=== PATIENT | male | born 1955 | race Caucasian/White ===

== ENCOUNTER → 2018-07-15 13:33 | Outpatient (CLI) | payer BC, SELFPAY ==
--- NOTE | 2018-07-15 13:37 | XR_ITS ---
XR finger RT min 2V HISTORY: XR finger RT min 2V COMPARISON: Right hand 06/22/2018 HISTORY: Follow-up fracture TECHNIQUE: AP lateral and oblique views FINDINGS: There is a healing fracture at the base of the proximal phalanges of the little finger there is healthy callus formation at fracture site since the previous study. The middle distal phalanx appear intact. There is mild diffuse soft tissue swelling noted. IMPRESSION: Healing proximal phalanx of the right little finger with healing progressing normally ITS.REASON: small digit fx/ xrays OUT OF SPLINT! ORDERING PHYSICIAN: Bruno Mathur MD PATIENT AGE: 63 years COMPARISON: None FINDINGS: No fracture or dislocation. No lytic or blastic change. There is normal mineralization.. The joint spaces are well-preserved. No significant degenerative/arthritic changes. No erosive changes evident.. IMPRESSION: Negative, no acute finding
== END ==
PROVIDERS: PCP Family Medicine; Visit Provider Orthopaedic Surgery
DX: S62.619A Displaced fracture of proximal phalanx of unspecified finger, initial encounter for closed fracture (principal)
CPT/HCPCS: 73140

== ENCOUNTER 2018-08-01 15:30 | Outpatient (RCR) | payer BC, SELFPAY ==
--- NOTE | 2018-07-22 16:24 | HMH.OTOPEV ---
OT Inpatient Evaluation Rehab OT Outpatient Eval Start: 07/22/18 16:09 Freq: Status: Active Protocol: Document 07/22/18 16:09 RMBISHOP (Rec: 07/22/18 16:23 [id number] Electronically Signed By Bulmaro Swenson OT 07/22/18 16:09 Outpatient Therapy Subjective History Subjective History Pt is a 63 year old male who reports to therapy for initial evaluation to right small finger. 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 Pt's accident took place on June 22. Pt continues to demonstrate with decreased AROM and strength at right small finger. 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 Pt will continue to be seen to address these deficits. Chief Complaint Pain Spasms Stiff Swelling Catches/Locks Weakness Decreased Car Dealer Strength Decreased Coordination Symptom Type Ache Throb Sharp Stabbing Shooting Symptoms Relieved By Nothing Symptoms Aggravated By Physical Activity Twisting Lifting Prior Functional Limitations None Current Functional Limitations Reaching Lifting Housework Dressing Driving Sleeping Recreation Activity Symptom Description Intermittent Activity Dependent Level of pain today (0-10) 1 Pain scale - at its best (0-10) 1 Pain scale - at its worst (0-10) 2 Wrist/Hand Eval Finger Range of Motion Right Little Finger Finger ROM Limitations Pain Finger Metacarpophalangeal Flexion 80 degrees Active Range of Motion (degrees) Finger Metacarpophalangeal Extension 0 degrees Active Range
== END 2018-08-01 15:35 | disposition home or self-care (01) ==
LOC: OT 15:30
PROVIDERS: PCP Family Medicine; Visit Provider Orthopaedic Surgery
DX: S62.616A Displaced fracture of proximal phalanx of right little finger, initial encounter for closed fracture (principal)
CPT/HCPCS: 97140; 97165

== ENCOUNTER → 2020-01-25 09:35 | Outpatient (CLI) | payer BC, SELFPAY | PROVIDERS: PCP Nurse Practitioner Family; Visit Provider Nurse Practitioner Family | DX: I49.9 Cardiac arrhythmia, unspecified (principal) | CPT/HCPCS: 93225; 93226 ==

== ENCOUNTER → 2020-02-05 13:54 | Outpatient (CLI) | payer BC, SELFPAY ==
--- NOTE | 2020-02-05 13:55 | CA_ITS ---
APPROVED REPORT EXAM: Comprehensive 2D, Doppler, and color-flow Echocardiogram Latexer: Olivia Long RVT Ht: 6 ft 0 in Wt: 250lbs BSA: 2.34 BP: 148/77 mmHg Indications: Syncope, CAD, Hyperlipidemia, Hypertension,HHD 2D Dimensions LVOT 2.40 cm (M/F) 1.5-2.5 M-Mode Dimensions RVDd 3.48 cm (0.9-2.6) LVDd 4.74 cm (3.5-5.7) LVDs 3.42 cm (3.5-5.7) IVSd 1.54 cm (0.6-1.1) PWd 1.03 cm (0.6-1.1) EF (Teich) 53.90% FS 27.80% EDV (Teich) 104.40 mL ESV (Teich) 48.10 mL LV Diastology E/A Ratio 0.81 Mitral Valve MV A Velocity 61.00 (40-130 cm/s) Left Ventricle Left atrium is normal size, left ventricle is normal size, mild concentric left ventricular hypertrophy, visually estimated ejection fraction 55% with no regional wall motion abnormality. Grade 1 diastolic dysfunction seen without tissue Doppler evidence of raise left atrial pressure. Right Ventricle Right atrium and right ventricular normal size and contractility. Aortic Valve Aortic valve is minimally thickened and fibrosed, there is no aortic stenosis or aortic insufficiency. Mitral Valve Mitral valve is grossly normal, there is mild mitral regurgitation. Tricuspid Valve Tricuspid valve grossly normal, there is mild tricuspid regurgitation, tricuspid regurgitation jet velocity is inadequate for calculation of the right ventricular systolic pressure. Pulmonic Valve Pulmonic valve is poorly visualized. Great Vessels Aortic root is normal size. Pericardium No significant pericardial effusion noted. Conclusion 1. Normal left ventricular size, mild concentric left ventricular hypertrophy, visually estimated ejection fraction 55% with no regional wall motion abnormality, grade 1 diastolic dysfunction seen without tissue Doppler evidence of raise left atrial pressure. 2. Mild mitral and tricuspid regurgitation. 3. No significant pericardial effusion noted. Electronically signed by : Bill Liu, 02/06/2020 07:37:14
== END ==
PROVIDERS: PCP Family Medicine; Visit Provider Physician Assistant
DX: I11.9 Hypertensive heart disease without heart failure (principal); I25.10 Atherosclerotic heart disease of native coronary artery without angina pectoris; E78.5 Hyperlipidemia, unspecified; R42 Dizziness and giddiness; R55 Syncope and collapse; Z95.5 Presence of coronary angioplasty implant and graft
CPT/HCPCS: 93306

== ENCOUNTER → 2020-03-13 13:31 | Outpatient (CLI) | payer BC, SELFPAY ==
--- NOTE | 2020-03-13 13:35 | CA_ITS ---
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: Olivia Long RVT Laterality: Bilateral Study Quality: Good Indications: Dizziness and Vertigo Risk Factors Hypertension: Hyperlipidemia Doppler Spectral Velocity Analysis ECA (R) 129.90/14.80 cm/s ECA (L) 132.60/15.90 cm/s dICA (R) 99.70/34.10 cm/s dICA (L) 77.80/21.20 cm/s Kristina (R) 114.50/41.90 cm/s Kristina (L) 80.00/21.60 cm/s pICA (R) 90.50/32.20 cm/s pICA (L) 64.00/19.20 cm/s dCCA (R) 101.80/18.00 cm/s dCCA (L) 125.20/23.10 cm/s pCCA (R) 120.30/17.60 cm/s pCCA (L) 123.20/16.80 cm/s Vert (R) 62.80/14.10 cm/s Vert (L) 57.50/11.50 cm/s ICA/CCA 1.12 ICA/CCA 0.64 Conclusion Study suggests less than 20% stenois of the right internal cartoid artery, unchanged from 10/13/17 study. Study suggests less than 20% stenosis of the left internal cartoid artery, unchanged from the 10/13/17 study. Antegrade flow seen bilateral vertebral arteries. Electronically signed by : Willy Santamaria MD 03/13/2020 16:28:36
== END ==
PROVIDERS: PCP Family Medicine; Visit Provider Nurse Practitioner Family
DX: R42 Dizziness and giddiness (principal); R41.3 Other amnesia
CPT/HCPCS: 93880

== ENCOUNTER → 2020-03-21 14:55 | Outpatient (CLI) | payer BC, SELFPAY ==
--- NOTE | 2020-03-21 15:03 | MR_ITS ---
PROCEDURE: MR HEAD/BRAIN WO CON CLINICAL INDICATION: MEMORY CHANGES, DIZZINESS Dizziness, right-sided headaches with confusion, inner ear problems COMPARISON: No exams were available for comparison TECHNIQUE: Routine multiplanar multi echo sequences are performed without gadolinium enhancement. FINDINGS: No midline shift, mass effect, intracranial hemorrhage, or hydrocephalus is evident. The cerebellopontine angles, cerebellum, and brainstem have an unremarkable appearance. No evidence of acute infarction. There are few scattered periventricular and subcortical T2 white matter hyperintensities which are nonspecific. The pituitary, optic chiasm, corpus callosum, and craniocervical junction have an unremarkable appearance. There is a small retention cyst in the left maxillary sinus. No sinus air-fluid level or mastoid effusion. IMPRESSION: 1. No acute intracranial findings. 2. Nonspecific scattered T2 white matter hyperintensities nonspecific and may be related to ischemic gliotic change from small vessel disease. Dictated by: Willy Santamaria MD 03/22/2020 13:22 Electronically signed by Willy Santamaria MD in [place] 03/22/2020 13:22
--- NOTE | 2020-03-21 15:03 | XR_ITS ---
PROCEDURE: XR ORBIT BILATERAL MIN 4V CLINICAL INDICATION: CHECK FOR METAL COMPARISON: No exams were available for comparison TECHNIQUE: AP views are obtained of the orbits with the patient looking up and down. FINDINGS: No radio opaque foreign bodies evident. IMPRESSION: No radio opaque orbital foreign body identified. Dictated by: Willy Santamaria MD 03/21/2020 15:12 Electronically signed by Willy Santamaria MD in [place] 03/21/2020 15:12
== END ==
PROVIDERS: PCP Family Medicine; Visit Provider Nurse Practitioner Family
DX: H05.53 Retained (old) foreign body following penetrating wound of bilateral orbits (principal); R42 Dizziness and giddiness; R41.3 Other amnesia
CPT/HCPCS: 70200; 70551

== ENCOUNTER → 2020-03-28 14:33 | Outpatient (CLI) | payer BC, SELFPAY ==
--- NOTE | 2020-03-28 14:33 | CT_ITS ---
PROCEDURE: CT HEAD/BRAIN WO/W CON CLINICAL INDICATION: memory loss Headache, dizziness, memory loss, nausea COMPARISON: MR HEAD/BRAIN WO CON from 03/21/2020 TECHNIQUE: IV Contrast: 100ML OPITRAY 320 Axial images obtained. All CT scans at the facility use one or more dose reduction, viz: automated exposure control, ma/kV adjustment per patient size (including targeted exams where dose is matched to indication, i.e. head), or iterative reconstruction technique. FINDINGS: No midline shift, mass effect, intracranial hemorrhage, hydrocephalus, or extra-axial fluid collection is evident. No enhancing lesions are evident. The calvarium has an unremarkable appearance. No mastoid effusion . No sinus air-fluid level IMPRESSION: Negative CT head without and with contrast enhancement Dictated by: Willy Santamaria MD 03/28/2020 16:23 Electronically signed by Willy Santamaria MD in [place] 03/28/2020 16:23
[2020-03-28 15:10] LABS: Blood Urea Nitrogen 16 mg/dl (9-20); Estimated Glomerular Filt Rate 97 ml/min (>60); GFR (African American) 118 ML/MIN (>60)
--- NOTE | 2020-03-28 15:57 | HMH.ITSHM ---
Current Home Medications as stated by this patient Garrison Joseph or architectural representative. []OMEGA 3 LISINOPRIL CLOPIDOGREL CARVEDILOL ATORVASTATIN ASA
== END ==
PROVIDERS: PCP Family Medicine; Visit Provider Physician Assistant
DX: R41.3 Other amnesia (principal); R42 Dizziness and giddiness; E78.5 Hyperlipidemia, unspecified; I11.9 Hypertensive heart disease without heart failure; I25.10 Atherosclerotic heart disease of native coronary artery without angina pectoris; Z95.5 Presence of coronary angioplasty implant and graft
CPT/HCPCS: 36415; 70470; 82565; 84520; Q9967

== ENCOUNTER → 2022-04-07 07:33 | Outpatient (CLI) | payer BC, SELFPAY ==
--- NOTE | 2022-04-07 07:40 | US_ITS ---
FINAL REPORT CLINICAL HISTORY: ABD PAIN FINDINGS: Sonographic images of the abdomen were obtained. The liver has an unremarkable appearance with normal echogenicity. There is minimal sludge in the gallbladder without evidence of gallstones. There is no evidence of biliary ductal dilatation. The common hepatic duct measures 3 mm, which is within normal limits. The pancreas is partially obscured. The spleen measures 12.3 cm and is at the upper limits of normal. The right kidney measures 12.2 cm in length. The left kidney measures 12.4 cm in length. There is normal renal echogenicity. There is no evidence of hydronephrosis. The aorta has an unremarkable appearance. Limited images of the inferior vena cava are unremarkable. IMPRESSION: Minimal sludge in the gallbladder. Spleen at the upper limits of normal. Reviewed, Interpreted and Dictated by Adalberto Cabral III, MD Transcribed by Aracely Marroquin Authenticated and [facility]
== END ==
PROVIDERS: PCP Family Medicine; Visit Provider Nurse Practitioner Family
DX: R10.31 Right lower quadrant pain (principal); R10.11 Right upper quadrant pain
CPT/HCPCS: 76700

== ENCOUNTER 2024-01-13 15:46 | Outpatient (CLI) | payer BC, SELFPAY ==
[2024-01-13 16:11] LABS: Basophils % 0.5 % (0.1-2.0); Eosinophils # 0.2 K/mm3 (0.0-0.4); Eosinophils % 2.8 % (0.1-12.0); Hematocrit 37.6 % (42.0-52.0); Hemoglobin 11.7 g/dL (14.1-18.0); Lymphocytes # 2.1 K/mm3 (0.7-4.5); Lymphocytes % 35.9 % (10-50); Mean Corpuscular HGB Conc 31.2 g/dL (31.8-35.4); Mean Corpuscular Hemoglobin 26.5 pg (27.0-31.2); Mean Corpuscular Volume 84.9 fl (80-94); Mean Platelet Volume 8.5 fl (7.4-10.4); Monocytes # 0.5 K/mm3 (0.1-1.0); Monocytes % 8.2 % (1.7-9.3); Neutrophils % 52.6 % (37.0-80.0); Platelet Count 313 K/mm3 (142-424); Red Blood Count 4.43 M/mm3 (4.60-6.20); Red Cell Distribution Width 15.7 % (11.5-17.5); White Blood Count 5.7 K/mm3 (4.8-10.8)
[2024-01-13 16:40] LABS: Alanine Aminotransferase 21 U/L (12-78); Albumin Level 3.9 g/dl (3.5-5.0); Alkaline Phosphatase 73 U/L (38-126); Aspartate Amino Transferase 27 U/L (17-59); Bilirubin,Indirect 0.5 mg/dL (0.0-0.9); Bilirubin,Total 0.5 mg/dl (0.2-1.3); Bilirubin,Unconjugated 0.4 mg/dL (0.0-1.1); Blood Urea Nitrogen 10 mg/dl (9-20); Calcium 8.9 mg/dl (8.4-10.2); Carbon Dioxide 26 mmol/L (22.0-30.0); Chloride 107 mmol/L (98-107); Chol/HDL Ratio 3.1 (1-3.5); Cholesterol 107 mg/dl (140-200); Estimated Glomerular Filt Rate 112 ml/min (>60); GFR (African American) 136 ML/MIN (>60); Glucose 97 mg/dl (74-100); HDL Cholesterol 35 mg/dl (40-60); Sodium 139 mmol/L (136-145); Total Protein,Serum 6.2 g/dl (6.3-8.2); Triglycerides 69 mg/dl (30-150); VLDL Cholesterol 14 mg/dL (0-40)
[2024-01-13 16:51] LABS: Direct LDL Cholesterol 59.66 mg/dL (100-129)
[2024-01-13 17:11] LABS: Thyroid Stimulating Hormone 0.43 uIU/mL (0.465-4.68)
== END 2024-01-13 23:59 ==
LOC: LAB 15:47
PROVIDERS: PCP Family Medicine; Visit Provider Nurse Practitioner Family
DX: E78.2 Mixed hyperlipidemia (principal); R06.00 Dyspnea, unspecified; K21.9 Gastro-esophageal reflux disease without esophagitis; I11.9 Hypertensive heart disease without heart failure; I25.10 Atherosclerotic heart disease of native coronary artery without angina pectoris; Z95.5 Presence of coronary angioplasty implant and graft
CPT/HCPCS: 80048; 80061; 80076; 84439; 84443; 85025

== ENCOUNTER 2024-02-01 16:29 | Outpatient (CLI) | payer BC, SELFPAY ==
--- NOTE | 2024-02-01 16:32 | XR_ITS ---
PROCEDURE INFORMATION: Exam: XR Chest Exam date and time: 02/01/2024 4:33 PM Age: 68 years old Clinical indication: Patient HX: States issues with vomiting, chest congestion, cough TECHNIQUE: Imaging protocol: Radiologic exam of the chest. Views: 2 views. COMPARISON: No relevant prior studies available. FINDINGS: Lungs: There is mild coarsening of the bronchovascular markings with hyperinflation suggesting underlying obstructive airways disease. Pleural spaces: No large effusion or pneumothorax. Heart/Mediastinum: No evidence of mediastinal widening or cardiac silhouette enlargement; the mediastinum and heart appear within normal limits for contour and size. Bones/joints: No evidence of acute osseous abnormalities within the visualized portions of the thoracic spine and ribs. Osseous structures appear appropriate for patient age. IMPRESSION: No dense parenchymal consolidation, pleural effusion, or pneumothorax.
== END 2024-02-01 23:59 ==
LOC: RAD 16:29
PROVIDERS: PCP Nurse Practitioner Family; Visit Provider Nurse Practitioner Family
DX: R05.3 Chronic cough (principal)
CPT/HCPCS: 71046

== ENCOUNTER 2024-02-18 13:58 | Emergency (ER) | payer BC, SELFPAY ==
[2024-02-18 14:00] VITALS: BP 107/83; PULSE 76; RESP 16; TEMP 36.5; O2SAT 99; BMI 33.2
[2024-02-18 14:30] VITALS: BP 112/73; PULSE 66; O2SAT 97
--- NOTE | 2024-02-18 14:38 | XR_ITS ---
FINAL REPORT TECHNIQUE: Chest PA & Lateral CLINICAL HISTORY: weakness COMPARISON: 02/01/2024 FINDINGS: 2 views of the chest were performed. The heart size is normal. The mediastinum is within normal limits. There is no acute cardiopulmonary process. There are no pleural effusions. There is no pneumothorax. The bony thorax appears intact. IMPRESSION: No acute cardiopulmonary process. Reviewed, Interpreted and Dictated by Evans Flores MD Transcribed by Eliza Meek Authenticated and [facility]
--- NOTE | 2024-02-18 14:44 | ECG_ITS ---
APPROVED REPORT Exam: Resting ECG HR:75 bpm ECG Measurements Heart Rate 75 AXES AK 156 P 23 QRSd 97 QRS 54 QT 388 T 37 QTc 416 Conclusion SINUS RHYTHM Electronically signed by : HANNAH MARTINEZ, 02/18/2024 20:19:31
[2024-02-18 15:01] VITALS: BP 137/81; PULSE 71; O2SAT 97
[2024-02-18 15:08] LABS: Basophils % 0.4 % (0.1-2.0); Eosinophils # 0.1 K/mm3 (0.0-0.4); Eosinophils % 1.4 % (0.1-12.0); Hematocrit 37.2 % (42.0-52.0); Hemoglobin 11.8 g/dL (14.1-18.0); Lymphocytes # 2.1 K/mm3 (0.7-4.5); Mean Corpuscular HGB Conc 31.8 g/dL (31.8-35.4); Mean Corpuscular Hemoglobin 25.5 pg (27.0-31.2); Monocytes # 0.6 K/mm3 (0.1-1.0); Monocytes % 7.7 % (1.7-9.3); Neutrophils % 63.6 % (37.0-80.0); Platelet Count 374 K/mm3 (142-424); Red Blood Count 4.65 M/mm3 (4.60-6.20); Red Cell Distribution Width 16.9 % (11.5-17.5); White Blood Count 7.9 K/mm3 (4.8-10.8)
[2024-02-18 15:09] LABS: Chloride 105 mmol/L (98-107)
[2024-02-18 15:10] LABS: Potassium 3.9 mmoL/L (3.5-5.1); Sodium 138 mmol/L (136-145)
[2024-02-18 15:12] LABS: Alanine Aminotransferase 23 U/L (12-78); Alkaline Phosphatase 80 U/L (38-126); Anion Gap 9.9 mEq/L (5-15); Aspartate Amino Transferase 32 U/L (17-59); Bilirubin,Total 0.7 mg/dl (0.2-1.3); Blood Urea Nitrogen 13 mg/dl (9-20); Calcium 9.4 mg/dl (8.4-10.2); Carbon Dioxide 27 mmol/L (22.0-30.0); Creatinine Clearance Estimated 113 mL/min (50-200); Estimated Glomerular Filt Rate 112 ml/min (>60); GFR (African American) 136 ML/MIN (>60); Glucose 107 mg/dl (74-100)
--- NOTE | 2024-02-18 15:12 | PC.NURSE ---
pt provided urinal for urine sample
[2024-02-18 15:13] LABS: Albumin/Globulin Ratio 1.6 (1.1-1.8); Globulin 2.5 g/dL (1.3-3.2); Lipase 63 U/L (23-300); Total Protein,Serum 6.5 g/dl (6.3-8.2)
[2024-02-18 15:27] LABS: Troponin I < 0.01 ng/ml (0.00-0.034)
[2024-02-18 15:30] VITALS: BP 108/86; PULSE 65; O2SAT 99
--- NOTE | 2024-02-18 15:48 | XR_ITS ---
PROCEDURE INFORMATION: Exam: XR Abdomen Exam date and time: 02/18/2024 4:20 PM Age: 68 years old Clinical indication: Constipation TECHNIQUE: Imaging protocol: Radiologic exam of the abdomen. Views: Frontal supine view of the abdomen. 1 View. COMPARISON: CR XR CHEST 2V 02/18/2024 3:12 PM FINDINGS: Gastrointestinal tract: Normal. No bowel dilation. Bones/joints: Unremarkable. Other findings: Moderate-marked stool burden. IMPRESSION: Moderate-marked stool burden.
--- NOTE | 2024-02-18 15:49 | ED_ITS ---
Discharge Plan Disposition Patient Disposition: Home, Self-Care Chief Complaint: Abdominal Pain Prescriptions Prescriptions: No Action omega-3 fatty acids [Fish Oil Concentrate] 1,000 mg capsule 1,000 mg PO DAILY carvedilol [Coreg] 6.25 mg tablet 6.25 mg PO BID Qty: 180 3RF Rx Instructions: must administer with a meal/food atorvastatin 80 mg tablet 80 mg PO DAILY Qty: 90 3RF clopidogrel 75 mg tablet 75 mg PO DAILY Qty: 90 3RF lisinopril 10 mg tablet 10 mg PO DAILY Qty: 90 3RF aspirin 81 mg tablet,delayed release (DR/EC) 81 mg PO DAILY ondansetron 8 mg tablet,disintegrating 8 mg PO DAILY Patient Comments: DISSOLVE 1 TABLET IN MOUTH NEEDED ONCE DAILY FOR 30 DAYS hydrocortisone [Procto-Med HC] 2.5 % cream with perineal applicator 1 applic LA BID Patient Comments: APPLY CREAM RECTALLY TO THE AFFECTED AREA TWICE DAILY omeprazole 20 mg capsule,delayed release(DR/EC) 20 mg PO DAILY fluticasone propionate 50 mcg/actuation spray,suspension 1 spray intranasal DAILY Patient Comments: USE 1 SPRAY(S) IN EACH NOSTRIL ONCE DAILY Referrals Follow up/Referrals: Karen Orr APRN [Primary Care Provider] - See instructions Activity Restrictions/Add. Instructions Additional Instructions/Restrictions: 2 capfuls of MiraLAX daily for 3 days, 1/2-1 full capful of MiraLAX daily from thereon out. Stool should be the consistency of toothpaste or soft serve ice cream. Taking probiotics daily can also help, talk to your supervisor research shop about ideal formulations and probiotics that may help. Call your family doctor to establish care for this visit to the emergency department and schedule follow-up within 48 hours to ensure improvement. Clinical Impressions Clinical Impression: Constipation, Abdominal pain Instructions Patient Instructions: DI for Acute Abdominal Pain Discharge ED Provider: Moses Conrad General Adult HPI General Chief complaint: Abdominal Pain Stated complaint: weak gi issues side and back pain Time Seen by Provider: 02/18/24 15:17 Mode of Arrival: Ambulatory Source of Information: Patient and Spouse Limitations: No Limitations Description of Symptoms (Recalled from ER Triage Doc. by RN): c/o left abdomen pain that shoots around his side to the back that comes and goes, states he has been having constipation issues for a few weeks, he had a soft bm today and yesterday. When he eats he has to throw up right after. He was unable to eat a turkey sandwhich yesterday but could eat the chips, banana and apple juice. States that his left arm feels numb and he feels off balance when walking, like both legs are just stiff. Feels like that he is moving in slow motion. History of Present Illness HPI narrative: 68-year-old male history of hiatal hernia, intermittent constipation, hypertension, hyperlipidemia presenting with multiple complaints. Patient states for the past week he has had intermittent constipation. Started using MiraLAX, had normal bowel movement, switch to fiber, has been constipated, switch back to MiraLAX. He is now having left lower quadrant/epigastric cramping pains do not radiate to back.. States that it starts in his left upper quadrant, radiates downward. Not associated with blood in the stool, urinary symptoms, or any other concerns. Never had pains like this in the past. Supposed with GI, but has not maintained follow-up. No fevers or chills, abnormal colonoscopy in the past, chest pain, shortness of breath, or any other concerns Please note that above description of symptoms, in this electronic medical record under categorization of recalled from ER triage doctor by RN are reflective of an initial nursing assessment, however, is not reflective of my full history and physical exam that was personally taken and clarified. Consequentially, this preceding description of symptoms, which may include the patient's categorized chief complaint in the EMR, do not reflect my personal clinical impression, and the ultimate description of history of present illness and patient stated complaints should be deferred to this section of the note. Unless stated otherwise or congruent with this section of the note, additional signs, symptoms, or incongruence should be interpreted as inaccurate with my clinical impression. Related Data Home Medications Medication Instructions Recorded Confirmed omega-3 fatty acids 1,000 mg 1,000 mg PO DAILY Supplement 05/17/18 02/01/24 capsule (Fish Oil Concentrate) aspirin 81 mg tablet,delayed 81 mg PO DAILY 02/01/24 release fluticasone propionate 50 1 spray intranasal DAILY 02/01/24 02/01/24 mcg/actuation nasal spray,suspension hydrocortisone 2.5 % topical cream 1 applic LA BID 02/01/24 02/01/24 with perineal applicator (Procto-Med ) omeprazole 20 mg capsule,delayed 20 mg PO DAILY 02/01/24 02/01/24 release ondansetron 8 mg disintegrating 8 mg PO DAILY 02/01/24 02/01/24 tablet Previous Rx's Medication Instructions Recorded atorvastatin 80 mg tablet 80 mg PO DAILY Cholesterol #90 tabs 01/13/24 carvedilol 6.25 mg tablet (Coreg) 6.25 mg PO BID #180 tabs 01/13/24 clopidogrel 75 mg tablet 75 mg PO DAILY #90 tabs 01/13/24 lisinopril 10 mg tablet 10 mg PO DAILY Hypertension #90 01/13/24 tabs Allergies Allergy/AdvReac Type Severity Reaction Status Date / Time No Known Allergies Allergy Verified 02/01/24 15:11 [facility] Disclaimer: The information contained in this section may have been updated after the patient was seen, as this information can be updated by other users. Medical History Heart attack Dyspnea Angina, class III Abnormal EKG Surgical History Hx of heart artery stent S/P cardiac catheterization Family History Father Coronary artery disease Mother Hypertension Social History Smoking Status: Never smoker second hand exposure: No alcohol intake: never substance use type: denies use current occupational status: employed Travel in the last 8 weeks: Inside the [place] household members: spouse housing: house caffeine: Yes ROS Obtained: Yes All systems reviewed & no additional complaints except as documented Physical Exam General General appearance: alert and in no apparent distress Head Head exam: atraumatic and normocephalic Eye Eye exam: Present normal appearance, PERRL and EOMI ENT ENT exam: Present mucous membranes moist Neck Neck exam: Present normal inspection, full ROM and trachea midline Respiratory Respiratory exam: Absent respiratory distress, wheezes, stridor, accessory muscle use or prolonged expiratory phase Cardiovascular Cardiovascular exam: Present normal rhythm Abdominal Exam Abdominal exam: Present soft; Absent distention, tenderness, guarding, rebound or rigidity Extremities Exam Extremities exam: Absent edema Neurological Exam Neurological exam: Present alert, oriented X3, CN II-XII intact and normal gait; Absent motor sensory deficit Skin Skin exam: Present warm and dry; Absent diaphoresis or erythema Medical Decision Making Medical Records Medical records reviewed: Yes I reviewed the patient's medical records. Nicko Inquiry Pt receiving controlled substance: No Nicko was queried for this patient: No Vital Signs: 02/18/24 14:00 02/18/24 14:30 02/18/24 15:01 Temperature 97.7 F Temperature Source Oral Pulse Rate 66 71 Pulse Rate [Left Radial] 76 Respiratory Rate 16 Blood Pressure 112/73 137/81 Blood Pressure [Right Arm] 107/83 L Blood Pressure Mean Blood Pressure Mean [Right Arm] 91 Blood Pressure Source [Right Arm] Automatic Cuff Blood Pressure Position [Right Arm] Sitting 02 Sat by Pulse Oximetry 99 97 97 Oxygen Delivery Method Room Air Room Air Room Air 02/18/24 15:30 02/18/24 16:00 Temperature Temperature Source Pulse Rate 65 69 Pulse Rate [Left Radial] Respiratory Rate Blood Pressure 108/86 L 138/83 Blood Pressure [Right Arm] Blood Pressure Mean 92 95 Blood Pressure Mean [Right Arm] Blood Pressure Source [Right Arm] Blood Pressure Position [Right Arm] 02 Sat by Pulse Oximetry 99 99 Oxygen Delivery Method Lab Data Lab Results 02/18/24 14:48: WBC 7.9, RBC 4.65, Hgb 11.8 L, Hct 37.2 L, MCV 80.0, MCH 25.5 L, MCHC 31.8, RDW 16.9, Plt Count 374, MPV 8.0, Neut % (Auto) 63.6, Lymph % (Auto) 27.0, [place] % (Auto) 7.7, Eos % (Auto) 1.4, Baso % (Auto) 0.4, Neut # (Auto) 5.0, Lymph # (Auto) 2.1, [place] # (Auto) 0.6, Eos # (Auto) 0.1, Baso # (Auto) 0.0, Sodium 138, Potassium 3.9, Chloride 105, Carbon Dioxide 27, Anion Gap 9.9, BUN 13, Creatinine 0.70, Estimated Creat Clear 113, Estimated GFR 112, Est GFR ( Amer) 136, Glucose 107 H, Calcium 9.4, Total Bilirubin 0.7, AST 32, ALT 23, Alkaline Phosphatase 80, Troponin I < 0.01, Total Protein 6.5, Albumin 4.0, Globulin 2.5, Albumin/Globulin Ratio 1.6, Lipase 63 02/18/24 16:22: Urine Color Yellow, Urine Appearance Clear, Urine pH 7.5, Ur Specific [place] 1.015, Urine Protein Negative, Urine Glucose (UA) Negative, Urine Ketones Negative, Urine Blood Negative, Urine Nitrate Negative, Urine Bilirubin Negative, Urine Urobilinogen 0.2, Ur Leukocyte Esterase Negative, Urine RBC None, Urine WBC None, Ur Squamous Epith Cells Occasional, Amorphous Sediment 1+, Urine Bacteria Trace 02/18/24 14:48 02/18/24 14:48 Orders (Tests/Meds): ED MEDICATIONS Generic Name Dose Route Start Last Admin Trade Name Freq PRN Reason Stop Dose Admin Sodium Chloride 10 ml 02/18/24 14:38 Sodium Chloride 0.9% 10ml Flush Syringe IV 03/19/24 14:37 NEEDED PRN Maintain IV Site ORDERS Category Date Time Status KUB (single view) [XR KUB] Stat Exams 02/18/24 15:48 Completed XR chest 2V Stat Exams 02/18/24 14:38 Completed Complete Blood Count Auto Diff Stat Lab 02/18/24 14:48 Completed Comprehensive Metabolic Panel Stat Lab 02/18/24 14:48 Completed Lipase Stat Lab 02/18/24 14:48 Completed Troponin I Q3H Lab 02/18/24 17:45 Ordered Troponin I Q3H Lab 02/18/24 20:45 Ordered Troponin I Stat Lab 02/18/24 14:48 Completed Urinalysis and Microscopic Stat Lab 02/18/24 16:22 Completed Medical Decision Narrative: 68-year-old male history of hiatal hernia, intermittent constipation, hypertension, hyperlipidemia presenting with multiple complaints. Patient states for the past week he has had intermittent constipation. Started using MiraLAX, had normal bowel movement, switch to fiber, has been constipated, switch back to MiraLAX. He is now having left lower quadrant/epigastric cramping pains do not radiate to back.. States that it starts in his left upper quadrant, radiates downward. Not associated with blood in the stool, urinary symptoms, or any other concerns. Never had pains like this in the past. Supposed with GI, but has not maintained follow-up. No fevers or chills, abnormal colonoscopy in the past, chest pain, shortness of breath, or any other concerns history obtained with patient and .. On arrival, patient hemodynamically stable, alert, oriented, appropriate. Abdomen is soft, nontender, nondistended. Very well-appearing. No overlying skin changes. No flank tenderness. Differential includes constipation, colitis,, pancreatitis, UTI, among others. Workup independently interpreted, nonactionable hematologic labs. Chest x-ray normal, KUB with concern for moderate stool burden that extends into a ascending colon. Given this, this most likely represents constipation. Because patient at baseline without signs or symptoms of clinical decompensation, deemed appropriate for discharge. Results were relayed to patient who voiced understanding and were agreeable to outpatient management and follow up. I discussed my clinical impression with patient and answered all questions. At this time, the evidence for any other entities in the differential is insufficient to warrant any further testing or ED observation. This was explained as well. Advisory was given that persistent or worsening symptoms require further evaluation. I confirmed the understanding of this discussion. Critical Care Critical Care Time Critical Care Time: No
[2024-02-18 16:00] VITALS: BP 138/83; PULSE 69; O2SAT 99
[2024-02-18 16:24] LABS: Microscopic, Urine URINE MICROSCOPIC (MICROSCOPIC)
[2024-02-18 16:33] LABS: Appearance,Urine CLEAR (Clear); Bilirubin,Urine Negative (Negative); Blood, Urine Negative (Negative); Color,Urine YELLOW (Yellow); Glucose,Urine (UA) Negative (Negative); Ketones,Urine Negative (Negative); Leukocyte Esterase,Urine Negative (Negative); Nitrate,Urine Negative (Negative); PH,Urine 7.5 (5.0-8.5); Protein,Urine Negative (Negative); Specific Gravity, Urine 1.015 (1.005-1.030); Urobilinogen,Urine 0.2 EU/dl (0.2)
--- NOTE | 2024-02-18 16:42 | PC.NURSE ---
Rounded on pt to see if he had any needs. pt had no needs at this time
[2024-02-18 16:57] LABS: Amorphous Sediment,Urine 1+ /lpf; Bacteria,Urine Trace /lpf; Squamous Epithelial Cell,Urine Occasional #/hpf (0-5)
[2024-02-18 17:14] VITALS: BP 140/89; PULSE 69; RESP 16; TEMP 36.6; O2SAT 98
== END 2024-02-18 17:15 | disposition home or self-care (01) ==
PROVIDERS: Emergency Medicine; Emergency Provider Emergency Medicine; PCP Nurse Practitioner Family
DX: R10.84 Generalized abdominal pain (principal); K59.00 Constipation, unspecified; I10 Essential (primary) hypertension; E78.5 Hyperlipidemia, unspecified
CPT/HCPCS: 71046; 74018; 80053; 81001; 83690; 84484; 85025; 93005; 99284

== ENCOUNTER 2024-02-20 16:18 | Observation (INO) | payer BC, SELFPAY ==
[2024-02-20] VITALS (11 sets, daily range): BP systolic 126–165; BP diastolic 74–86; PULSE 69–82; RESP 18–20; TEMP 36.7–36.9; O2SAT 96–100; BMI 33.2
--- NOTE | 2024-02-20 17:17 | PC.NURSE ---
DR TORRE AT BS FOR PT EVAL
--- NOTE | 2024-02-20 17:32 | CT_ITS ---
PROCEDURE INFORMATION: Exam: CTA Head With Contrast, Venography Exam date and time: 02/20/2024 5:57 PM Age: 68 years old Clinical indication: Dizziness and giddiness TECHNIQUE: Imaging protocol: Computed tomography angiography of the head with contrast. Exam focused on the veins. 3D rendering (Not supervised by radiologist): MIP and/or 3D reconstructed images were created by the technologist. Radiation optimization: All CT scans at this facility use at least one of these dose optimization techniques: automated exposure control; mA and/or kV adjustment per patient size (includes targeted exams where dose is matched to clinical indication); or iterative reconstruction. Contrast material: ISOUVE 370; Contrast volume: 100 ml; Contrast route: INTRAVENOUS (IV); COMPARISON: CT HEAD/BRAIN WO CON 02/20/2024 5:53 PM FINDINGS: Superior sagittal sinus: The dural venous sinuses and major cortical veins enhance appropriately without evidence of thrombosis. Straight sinus: Patent. Transverse sinuses: Patent. Sigmoid sinuses: Patent. Internal jugular veins: Limited visualized internal jugular veins are patent. ANTERIOR CIRCULATION: Right internal carotid artery: The right ICA petrous segment is unremarkable. Right ICA cavernous segment is unremarkable. The right ICA supraclinoid segment is unremarkable. Right middle cerebral artery: Unremarkable. No occlusion or significant stenosis. No aneurysm. Right anterior cerebral artery: Unremarkable. No occlusion or significant stenosis. No aneurysm. The anterior communicating artery is unremarkable. Left internal carotid artery: The left ICA petrous segment is unremarkable. Left ICA cavernous segment is unremarkable. Mild calcific atherosclerosis in the supraclinoid segment without significant stenosis. Left middle cerebral artery: Unremarkable. No occlusion or significant stenosis. No aneurysm. Left anterior cerebral artery: Aplastic left A1 segment, anatomic variant. No occlusion or significant stenosis. No aneurysm. POSTERIOR CIRCULATION: Right vertebral artery: Unremarkable. No occlusion or significant stenosis. No aneurysm. Left vertebral artery: Mild distal calcific plaque. No occlusion or significant stenosis. No aneurysm. Basilar artery: Unremarkable. No occlusion or significant stenosis. No aneurysm. Right posterior cerebral artery: Unremarkable. No occlusion or significant stenosis. No aneurysm. Left posterior cerebral artery: Unremarkable. No occlusion or significant stenosis. No aneurysm. Brain: No vascular malformations. No gross enhancing brain lesions are identified. 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 Soft tissues: Unremarkable. IMPRESSION: 1. No acute vascular abnormalities. No evidence of large vessel occlusion or significant stenosis. No evidence of arterial dissection or aneurysm/pseudoaneurysm. 2. Please see noncontrast head CT report regarding suspected leptomeningeal nodules and recommendation for pre and postcontrast brain MRI.
--- NOTE | 2024-02-20 17:32 | CT_ITS ---
PROCEDURE INFORMATION: Exam: CTA Neck With Contrast Exam date and time: 02/20/2024 5:57 PM Age: 68 years old Clinical indication: Dizziness and giddiness TECHNIQUE: Imaging protocol: Computed tomographic angiography of the neck with contrast. Exam focused on the cervical segments of the vasculature. 3D rendering (Not supervised by radiologist): MIP and/or 3D reconstructed images were created by the technologist. Radiation optimization: All CT scans at this facility use at least one of these dose optimization techniques: automated exposure control; mA and/or kV adjustment per patient size (includes targeted exams where dose is matched to clinical indication); or iterative reconstruction. Contrast material: ISOUVE 370; Contrast volume: 100 ml; Contrast route: INTRAVENOUS (IV); COMPARISON: CT ANGIO HEAD 02/20/2024 5:57 PM FINDINGS: Right common carotid artery: Normal. No stenosis. No dissection or occlusion. Right internal carotid artery: Moderate calcific plaque in the right carotid bulb and proximal most ICA segment. No stenosis. No dissection or occlusion. Right external carotid artery: Normal. No stenosis. No dissection or occlusion. Left common carotid artery: Normal. No stenosis. No dissection or occlusion. Left internal carotid artery: Mild calcific plaque in the left carotid bulb. No stenosis. No dissection or occlusion. Left external carotid artery: Normal. No stenosis. No dissection or occlusion. Right vertebral artery: Mild ostial/post ostial calcific plaque producing mild stenosis of less than 50%. No dissection or occlusion. Left vertebral artery: Mild distal calcific plaque. No stenosis. No dissection or occlusion. Brachiocephalic artery: The brachiocephalic artery is unremarkable. Right subclavian artery: The right subclavian artery is unremarkable. Left subclavian artery: The left subclavian artery demonstrates mild calcific plaque without stenosis. Aorta: The visualized aortic arch demonstrates mild ectasia and calcific plaque without evidence of dissection or gross aneurysm. Thyroid: The thyroid gland is unremarkable. Soft tissues: No significant soft tissue swelling or hematoma. Bones/joints: No acute osseous abnormalities are identified. Lungs: The visualized pulmonary apices are clear. IMPRESSION: 1. No evidence of arterial occlusion, significant stenosis, dissection, or aneurysm/pseudoaneurysm. 2. There is mild stenosis of less than 50% in the proximal right vertebral artery. REFERENCES: NASCET CRITERIA. The degree of stenosis in the cervical segment of the internal carotid artery is based on NASCET criteria. Normal is no stenosis. Mild is less than 50% stenosis. Moderate is 50-69% stenosis. Severe is 70% to 99% stenosis. Total occlusion is no detectable patent lumen.
--- NOTE | 2024-02-20 17:32 | CT_ITS ---
PROCEDURE INFORMATION: Exam: CT Abdomen And Pelvis With Contrast Exam date and time: 02/20/2024 6:07 PM Age: 68 years old Clinical indication: Abdominal pain; Additional info: R hemiabdominal pain TECHNIQUE: Imaging protocol: Computed tomography of the abdomen and pelvis with contrast. Radiation optimization: All CT scans at this facility use at least one of these dose optimization techniques: automated exposure control; mA and/or kV adjustment per patient size (includes targeted exams where dose is matched to clinical indication); or iterative reconstruction. Contrast material: ISOVUE; Contrast volume: 75 ml; Contrast route: IV; COMPARISON: CR XR KUB 02/18/2024 4:20 PM FINDINGS: Lungs: Dependent bilateral lung base opacities favor atelectasis. Right middle lobe partially visualized 8.6 mm nodule, axial image 1. Liver: Hypoattenuating circumscribed cystic structure within the left hepatic lobe favors benign hepatic cyst measuring 15 mm. Gallbladder and bile ducts: Normal. No calcified stones. No ductal dilation. Pancreas: Normal. No ductal dilation. Spleen: Normal. No splenomegaly. Adrenal glands: Normal. No mass. Kidneys and ureters: Indeterminate cyst at the inferior pole of the right kidney measures 2.3 cm in diameter measuring 58 Hounsfield units in density. Stomach and bowel: Unremarkable. No obstruction. No mucosal thickening. Appendix: The appendix is not definitely identified, but there are no primary or secondary CT findings to suggest a diagnosis of acute appendicitis. Intraperitoneal space: Unremarkable. No free air. No significant fluid collection. Vasculature: Moderate calcific atherosclerotic disease of the abdominal aorta without aneurysmal dilatation is present. Lymph nodes: Unremarkable. No enlarged lymph nodes. Urinary bladder: Unremarkable as visualized. Reproductive: Unremarkable as visualized. Bones/joints: Moderate loss of intervertebral disc space with degenerative changes at lumbar spine greatest at L5-S1. Multiple healed rib fractures on the right. Soft tissues: Normal. IMPRESSION: 1. Right middle lobe partially visualized 8.6 mm nodule, axial image 1. Recommend further evaluation with dedicated nonurgent low-dose chest CT. 2. Indeterminate cyst at the inferior pole of the right kidney measures 2.3 cm in diameter measuring 58 Hounsfield units in density. Recommend further characterization with dedicated nonurgent renal CT/MRI. 3. No CT findings that explain patient's symptoms.
--- NOTE | 2024-02-20 17:32 | CT_ITS ---
PROCEDURE INFORMATION: Exam: CT Head Without Contrast Exam date and time: 02/20/2024 5:53 PM Age: 68 years old Clinical indication: Dizziness TECHNIQUE: Imaging protocol: Computed tomography of the head without contrast. Radiation optimization: All CT scans at this facility use at least one of these dose optimization techniques: automated exposure control; mA and/or kV adjustment per patient size (includes targeted exams where dose is matched to clinical indication); or iterative reconstruction. COMPARISON: CT HEAD/BRAIN WO/W CON 03/28/2020 3:35 PM FINDINGS: Brain: Mild generalized cerebral/cerebellar atrophy. Minimal periventricular bilateral white matter hypodensities which are nonspecific but most commonly associated with chronic microvascular ischemia in this age group. The IACs are grossly normal. No extra-axial fluid collections. No evidence of acute intracranial hemorrhage. Cerebral/cerebellar purcell-white matter differentiation is well maintained. No CT evidence of large territory acute or subacute intracranial ischemia/infarct. No intra-axial mass lesions. Suspected 4 mm nodule in the rightward quadrigeminal cistern just inferolateral to the tectal plate series 5, image 22. Suspected 7 mm nodule at the lateral margin of the right tentorial incisura series 5, image 24. Suspected nodule in the left lateral peripontine cistern measuring 4 mm on series 5, image 23. Suspected 8 mm nodule at the posterolateral margin of the right cerebellar hemisphere series 5, image 10. These are new compared to MRI 03/21/[address] 03/28/2020. They are nonspecific, possibly leptomeningeal metastases. Granulomatous process such as neurosarcoid might produce this appearance. Tuberculosis or cryptococcal lepto meningitis could produce this appearance. Recommend pre and postcontrast brain MRI. No midline shift or herniation. Cerebral ventricles: Ventricles normal. Pituitary gland and sella: The sella is grossly normal. Paranasal sinuses: Mucosal thickening in the maxillary sinuses suggesting mild chronic sinus inflammatory disease. No fluid levels. The other paranasal sinuses are clear. Mastoid air cells: Visualized mastoid air cells are clear. Orbital cavities: No acute intraorbital findings. Bones/joints: The calvarium and visualized facial bones are intact. Soft tissues: The scalp and visualized soft tissues demonstrate no acute abnormality. IMPRESSION: 1. No intracranial hemorrhage or mass effect. 2. Suspected small extra-axial nodules as detailed above, concerning for potential leptomeningeal metastasis/carcinomatosis versus other differential considerations above. No associated intra-axial lesions are identified. The appearance is new since prior imaging in 2020, and there are no corresponding vessels in these regions on MRI or CTA to favor an artifactual appearance. Recommend pre and postcontrast MRI of the brain. 3. Atrophy and microvascular changes consistent with age. 4. These findings initiated a critical results reporting process. An addendum will be issued at the time of clinician notification.
--- NOTE | 2024-02-20 17:34 | HMH.EDGENADL ---
Discharge Plan Disposition Patient Disposition: Admitted Clinical Impressions Clinical Impression: Dizziness, Abnormal brain CT, Torsional nystagmus Discharge ED Provider: Tommy Chaney General Adult HPI General Chief complaint: Dizziness Stated complaint: not eating, dizzy abd pain Time Seen by Provider: 02/20/24 16:26 Mode of Arrival: Ambulatory Source of Information: Patient and Spouse Limitations: No Limitations Description of Symptoms (Recalled from ER Triage Doc. by RN): pt was seen here in ER on wednesday and diagnosed with constipation. took miralx and has been cleaned out however now he is having spasms in his RUQ and thinks he could have GB issues or a kidney stone due to having urinary hesitancy when the pain happens. pt is also complaining of dizziness today which is worse upon mvmt, pt has no hx of vertigo History of Present Illness HPI narrative: Patient is a 68-year-old male with past medical history of coronary artery disease status post stenting, hyperlipidemia, constipation, abdominal pain who presents emergency department for multiple complaints. The most concerning 1 to him his dizziness, onset was acute, Wednesday, nonspecific spinning, difficult to localize which side, no trauma, is able to ambulate. He was also seen recently here for abdominal pain and was diagnosed with constipation and in the interim completed protocol with magnesium citrate with success. However he does have intermittent moderate to severe right hemiabdominal pain that is also causing him concern. Patient's symptoms do not occur at rest when he is holding still and are worse with movement. No acute extremity weakness, no difficulty phonating. Decreased p.o. intake from baseline. Due to the symptoms he presents here for continued evaluation Related Data Home Medications Medication Instructions Recorded Confirmed omega-3 fatty acids 1,000 mg 1,000 mg PO DAILY Supplement 05/17/18 02/20/24 capsule (Fish Oil Concentrate) aspirin 81 mg tablet,delayed 81 mg PO DAILY 02/01/24 02/20/24 release fluticasone propionate 50 1 spray intranasal DAILY 02/01/24 02/20/24 mcg/actuation nasal spray,suspension hydrocortisone 2.5 % topical cream 1 applic HI BID 02/01/24 02/20/24 with perineal applicator (Procto-Med HC) omeprazole 20 mg capsule,delayed 20 mg PO DAILY 02/01/24 02/20/24 release ondansetron 8 mg disintegrating 8 mg PO DAILY 02/01/24 02/20/24 tablet Previous Rx's Medication Instructions Recorded atorvastatin 80 mg tablet 80 mg PO DAILY Cholesterol #90 tabs 01/13/24 carvedilol 6.25 mg tablet (Coreg) 6.25 mg PO BID #180 tabs 01/13/24 clopidogrel 75 mg tablet 75 mg PO DAILY #90 tabs 01/13/24 lisinopril 10 mg tablet 10 mg PO DAILY Hypertension #90 01/13/24 tabs Allergies Allergy/AdvReac Type Severity Reaction Status Date / Time No Known Allergies Allergy Verified 02/01/24 15:11 [facility] Disclaimer: The information contained in this section may have been updated after the patient was seen, as this information can be updated by other users. Medical History Heart attack Dyspnea Angina, class III Abnormal EKG Surgical History Hx of heart artery stent S/P cardiac catheterization Family History Father Coronary artery disease Mother Hypertension Social History (Updated 02/20/24 @ 22:29 by Mara Casarez RN) Smoking Status: Never smoker second hand exposure: No alcohol intake: never substance use type: denies use current occupational status: employed Travel in the last 8 weeks: None household members: spouse housing: house caffeine: Yes ROS Obtained: Yes Systems reviewed as appropriate & no additional complaints except as documented Physical Exam General General appearance: alert and in no apparent distress Head Head exam: atraumatic and normocephalic Eye Eye exam: Present PERRL and EOMI ENT ENT exam: Present mucous membranes moist Neck Neck exam: Present normal inspection Chest Chest inspection: Present normal inspection and symmetric chest wall rise Respiratory Respiratory exam: Present normal lung sounds bilaterally; Absent respiratory distress Cardiovascular Cardiovascular exam: Present regular rate and normal rhythm Abdominal Exam Abdominal exam: Present soft and tenderness (Right lower quadrant) Extremities Exam Extremities exam: Present normal inspection Neurological Exam Neurological exam: Present alert, CN II-XII intact and other ([place]-Hallpike performed, torsional nystagmus with head to the left.); Absent motor sensory deficit Psychiatric Psychiatric exam: Present normal affect Skin Skin exam: Present warm and dry Medical Decision Making Nicko Inquiry Pt receiving controlled substance: No Vital Signs: 02/20/24 16:20 02/20/24 16:30 02/20/24 18:31 Temperature 98.0 F Temperature Source Oral Pulse Rate 76 79 Pulse Rate [Right Radial] 75 Respiratory Rate 20 Blood Pressure 126/74 147/77 H Blood Pressure [Right Arm] 126/74 Blood Pressure Mean [Right Arm] 91 Blood Pressure Source Blood Pressure Position 02 Sat by Pulse Oximetry 100 96 100 Oxygen Delivery Method Room Air Room Air Room Air 02/20/24 19:01 02/20/24 19:30 02/20/24 20:00 Temperature Temperature Source Pulse Rate 69 71 75 Pulse Rate [Right Radial] Respiratory Rate Blood Pressure 162/77 H 154/86 H 165/82 H Blood Pressure [Right Arm] Blood Pressure Mean [Right Arm] Blood Pressure Source Blood Pressure Position 02 Sat by Pulse Oximetry 97 98 97 Oxygen Delivery Method 02/20/24 20:30 02/20/24 21:00 02/20/24 21:30 Temperature Temperature Source Pulse Rate 71 71 72 Pulse Rate [Right Radial] Respiratory Rate Blood Pressure 146/82 H 158/83 H 141/86 H Blood Pressure [Right Arm] Blood Pressure Mean [Right Arm] Blood Pressure Source Blood Pressure Position 02 Sat by Pulse Oximetry 96 97 97 Oxygen Delivery Method 02/20/24 21:44 Temperature 98.0 F Temperature Source Oral Pulse Rate 82 Pulse Rate [Right Radial] Respiratory Rate 18 Blood Pressure 141/86 H Blood Pressure [Right Arm] Blood Pressure Mean [Right Arm] Blood Pressure Source Automatic Cuff Blood Pressure Position Sitting 02 Sat by Pulse Oximetry Oxygen Delivery Method Room Air Lab Data Lab Results 02/20/24 17:10: Sodium 137, Potassium 3.8, Chloride 102, Carbon Dioxide 26, Anion Gap 12.8, BUN 12, Creatinine 0.60 L, Estimated Creat Clear 113, Estimated GFR 134, Est GFR ( Amer) 163, Glucose 147 H, Calcium 9.5, Magnesium 1.8, Total Bilirubin 0.6, AST 33, ALT 26, Alkaline Phosphatase 67, Total Protein 6.6, Albumin 4.0, Globulin 2.6, Albumin/Globulin Ratio 1.5, Lipase 48, Mycoplasma pneumon IgM Non-reactive 02/20/24 18:10: WBC 8.5, RBC 4.48 L, Hgb 11.4 L, Hct 35.3 L, MCV 78.9 L, MCH 25.5 L, MCHC 32.4, RDW 16.7, Plt Count 350, MPV 7.7, Neut % (Auto) 70.7, Lymph % (Auto) 19.9, [place] % (Auto) 7.8, Eos % (Auto) 1.3, Baso % (Auto) 0.5, Neut # (Auto) 6.0, Lymph # (Auto) 1.7, [place] # (Auto) 0.7, Eos # (Auto) 0.1, Baso # (Auto) 0.0 02/20/24 18:15: SARS-CoV-2 (PCR) Not detected, Influenza A Untype (PCR) Not detected, Influenza Type B (PCR) Not detected 02/20/24 18:10 02/20/24 17:10 Orders (Tests/Meds): ED MEDICATIONS Generic Name Dose Route Start Last Admin Trade Name Freq PRN Reason Stop Dose Admin Sodium Chloride 10 ml 02/20/24 18:02 02/20/24 18:04 Sodium Chloride 0.9% 10ml Syr (Rad Only) IV 03/21/24 18:01 10 ml NEEDED PRN Administration Maintain IV Site Discontinued Medications Generic Name Dose Route Start Last Admin Trade Name Freq PRN Reason Stop Dose Admin Acetaminophen 1,000 mg 02/20/24 17:32 02/20/24 18:30 Acetaminophen 500mg Tab PO 02/20/24 17:33 1,000 mg ONCE ONE Administration Lactated Ringer's 1,000 mls @ 999 mls/hr 02/20/24 17:36 02/20/24 18:30 Lactated Ringer's 1000 Ml Bag IV 02/20/24 18:36 999 mls/hr .Q1H1M ONE Administration Iopamidol 175 ml 02/20/24 18:02 02/20/24 18:04 Iopamidol-370 (76%);100ml Bottle IV 02/20/24 18:03 175 ml ONCE ONE Administration Ketorolac Tromethamine 15 mg 02/20/24 17:32 02/20/24 18:30 Ketorolac 30mg/Ml Vial IV 02/20/24 17:33 15 mg ONCE ONE Administration Meclizine HCl 25 mg 02/20/24 17:32 02/20/24 18:30 Meclizine 25mg Tablet PO 02/20/24 17:33 25 mg ONCE ONE Administration Sodium Chloride 50 ml 02/20/24 18:02 02/20/24 18:04 0.9 % Sodium Chloride 50 Ml Vial IV 02/20/24 18:03 50 ml ONCE ONE Administration ORDERS Category Date Time Status CT abdomen pelvis w con Stat Cat Scan 02/20/24 17:[address] angio head Stat Cat Scan 02/20/24 17:[address] angio neck Stat Cat Scan 02/20/24 17:[address] head/brain wo con Stat Cat Scan 02/20/24 17:32 Completed CBC w/Auto Diff [Complete Blood Count Auto Diff] Stat Lab 02/20/24 18:10 Completed CMP [Comprehensive Metabolic Panel] Stat Lab 02/20/24 17:10 Completed Lipase Stat Lab 02/20/24 17:10 Completed MG [Magnesium] Stat Lab 02/20/24 17:10 Completed Rapid PCR Covid and Flu A/B Stat Lab 02/20/24 18:15 Completed EKG Request [ECG Request] Stat Y 02/20/24 17:37 Ordered ECG Data Tracing #1: Independently interpreted by me, rate 70, rhythm is regular, axis is normal, no significant ST elevation in anatomical contiguous leads, QTc 413. Significant chatter. Medical Decision Narrative: In summary patient is a 68-year-old male with past medical history described above who presents emergency department for evaluation of dizziness, abdominal pain. Patient is hemodynamically stable nontoxic-appearing upon arrival, afebrile. With respect to dizziness, differential diagnosis includes posterior circulation abnormality, BPPV, vestibular neuritis, among others. With respect to abdominal pain differential includes cholecystitis, appendicitis, constipation. Taken together it may be reflective of viral syndrome with associated dizziness in the setting of decreased p.o. intake. Workup will be conducted with hematologic labs, noncontrasted CT scan of the head, CTA of the head and neck, CT abdomen pelvis IV contrast. Initial inventions include crystalloid bolus, Toradol, Tylenol, meclizine. Initial workup reviewed by me, hematologic labs are nonactionable, no critical electrolyte abnormalities or CHARLIE, viral swab negative, no leukocytosis or significant anemia. 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 These findings were relayed to me by radiology. CT abdomen pelvis shows renal cyst recommending nonemergent evaluation. Given possible leptomeningeal metastasis the case was discussed with [facility] Dr. Lerma regarding care and patient will be placed on wait list for transfer. [facility] was paged and callback is pending. Patient will likely benefit from CT chest to see if possible primary tumor is located there and further monitoring given severity of symptoms and acute onset. Given this the case was discussed with hospital medicine who graciously excepted patient for continued evaluation pending transfer from wait list at this time. Critical Care Critical Care Time Critical Care Time: No
--- NOTE | 2024-02-20 17:37 | ECG_ITS ---
APPROVED REPORT Exam: Resting ECG HR:70 bpm ECG Measurements Heart Rate 70 AXES NV 174 P 54 QRSd 90 QRS 66 QT 392 T 37 QTc 413 Conclusion SINUS RHYTHM NORMAL ECG UNCONFIRMED REPORT Electronically signed by : SHANNON MERRILL, 02/21/2024 02:56:37
[2024-02-20 17:47] LABS: Chloride 102 mmol/L (98-107); Potassium 3.8 mmoL/L (3.5-5.1); Sodium 137 mmol/L (136-145)
--- NOTE | 2024-02-20 17:49 | PC.NURSE ---
PT TO CT
[2024-02-20 17:50] LABS: Alanine Aminotransferase 26 U/L (12-78); Albumin/Globulin Ratio 1.5 (1.1-1.8); Alkaline Phosphatase 67 U/L (38-126); Anion Gap 12.8 mEq/L (5-15); Aspartate Amino Transferase 33 U/L (17-59); Bilirubin,Total 0.6 mg/dl (0.2-1.3); Blood Urea Nitrogen 12 mg/dl (9-20); Calcium 9.5 mg/dl (8.4-10.2); Carbon Dioxide 26 mmol/L (22.0-30.0); Creatinine Clearance Estimated 113 mL/min (50-200); Estimated Glomerular Filt Rate 134 ml/min (>60); GFR (African American) 163 ML/MIN (>60); Globulin 2.6 g/dL (1.3-3.2); Glucose 147 mg/dl (74-100); Lipase 48 U/L (23-300); Total Protein,Serum 6.6 g/dl (6.3-8.2)
[2024-02-20 17:51] LABS: Magnesium 1.8 mg/dl (1.6-2.3)
[2024-02-20] MEDS: IOPAMIDOL-370 (76%);100ML BOTTLE 175 ML IV (18:04)
[2024-02-20] MEDS: SODIUM CHLORIDE 0.9% 10ML SYR (RAD ONLY) 10 ML IV (18:04)
[2024-02-20] MEDS: 0.9 % SODIUM CHLORIDE 50 ML VIAL IV (18:04)
[2024-02-20 18:25] LABS: Coronavirus 19, PCR Not Detected (NotDetected); Influenza A, PCR Not Detected (NotDetected); Influenza B, PCR Not Detected (NotDetected)
[2024-02-20] MEDS: MECLIZINE 25MG TABLET 25 MG PO (18:30)
[2024-02-20] MEDS: ACETAMINOPHEN 500MG TAB 1000 MG PO (18:30)
[2024-02-20] MEDS: KETOROLAC 30MG/ML VIAL 15 MG IV (18:30)
[2024-02-20] MEDS: LACTATED RINGERS 1000ML 1,000 ML 999 ML IV (18:30)
[2024-02-20 18:59] LABS: Basophils % 0.5 % (0.1-2.0); Eosinophils # 0.1 K/mm3 (0.0-0.4); Eosinophils % 1.3 % (0.1-12.0); Hematocrit 35.3 % (42.0-52.0); Hemoglobin 11.4 g/dL (14.1-18.0); Lymphocytes # 1.7 K/mm3 (0.7-4.5); Lymphocytes % 19.9 % (10-50); Mean Corpuscular HGB Conc 32.4 g/dL (31.8-35.4); Mean Corpuscular Hemoglobin 25.5 pg (27.0-31.2); Mean Corpuscular Volume 78.9 fl (80-94); Mean Platelet Volume 7.7 fl (7.4-10.4); Monocytes # 0.7 K/mm3 (0.1-1.0); Monocytes % 7.8 % (1.7-9.3); Neutrophils % 70.7 % (37.0-80.0); Platelet Count 350 K/mm3 (142-424); Red Blood Count 4.48 M/mm3 (4.60-6.20); Red Cell Distribution Width 16.7 % (11.5-17.5); White Blood Count 8.5 K/mm3 (4.8-10.8)
--- NOTE | 2024-02-20 19:56 | PC.NURSE ---
[facility] notified of need for transport
--- NOTE | 2024-02-20 20:36 | PC.NURSE ---
images power shared to [facility]
--- NOTE | 2024-02-20 21:14 | PC.NURSE ---
spoke with Bonita at [facility], awaiting return call
--- NOTE | 2024-02-20 21:43 | PC.NURSE ---
report called to [facility] on 2nd floor, monica jason rn transporting pt to rm 202 at this time
--- NOTE | 2024-02-20 22:09 | XR_ITS ---
PROCEDURE INFORMATION: Exam: XR Chest Exam date and time: 02/20/2024 10:16 PM Age: 68 years old Clinical indication: Other: Dizziness TECHNIQUE: Imaging protocol: Radiologic exam of the chest. Views: 1 view. COMPARISON: CR XR CHEST 2V 02/18/2024 3:12 PM FINDINGS: Lungs: Normal pulmonary expansion. Granulomatous calcification in the left lower lobe. Pulmonary vasculature grossly normal. No gross pulmonary infiltrates or edema pattern. Pleural spaces: No pleural effusion. No pneumothorax. Heart/Mediastinum: Heart size normal. No tracheal/mediastinal shift. Bones/joints: No acute osseous abnormalities are identified. Osteopenia chronic lower posterior right rib fractures. IMPRESSION: No acute thoracic process.
--- NOTE | 2024-02-20 22:11 | P.HPDS_ITS ---
General Admission date:: 02/20/24 *Admission Date: 02/20/24 *Chief complaint: Dizziness *History of present illness: 68-year-old male with past medical history of coronary artery disease status post stenting, hyperlipidemia, constipation, abdominal pain who presents emergency department for multiple complaints. The most concerning 1 to him his dizziness, onset was acute, Wednesday, nonspecific spinning, difficult to localize which side, no trauma, is able to ambulate. He was also seen recently here for abdominal pain and was diagnosed with constipation and in the interim completed protocol with magnesium citrate with success. However he does have intermittent moderate to severe right hemiabdominal pain that is also causing him concern. Patient's symptoms do not occur at rest when he is holding still and are worse with movement. No acute extremity weakness, no difficulty phonating. Decreased p.o. intake from baseline. Due to the symptoms he presents here for continued evaluation [facility] Disclaimer: The information contained in this section may have been updated after the patient was seen, as this information can be updated by other users. Medical History Heart attack Dyspnea Angina, class III Abnormal EKG Surgical History Hx of heart artery stent S/P cardiac catheterization Family History Father Coronary artery disease Mother Hypertension Social History (Updated 02/20/24 @ 22:29 by Mara Casarez RN) Smoking Status: Never smoker second hand exposure: No alcohol intake: never substance use type: denies use current occupational status: employed Travel in the last 8 weeks: None household members: spouse housing: house caffeine: Yes Review of Systems Review of Systems Review of systems:: pertinent systems reviewed and negative unless documented below Exam Data for Last 24 hours Vital signs and Labs for Last 24 Hours: Temp Pulse Resp BP Pulse Ox O2 Del Method 98.0 F 82 18 141/86 H 97 Room Air 02/20/24 21:44 02/20/24 21:44 02/20/24 21:44 02/20/24 21:44 02/20/24 21:30 02/20/24 21:44 Laboratory Results - last 24 hr 02/20/24 17:10: Sodium 137, Potassium 3.8, Chloride 102, Carbon Dioxide 26, Anion Gap 12.8, BUN 12, Creatinine 0.60 L, Estimated Creat Clear 113, Estimated GFR 134, Est GFR ( Amer) 163, Glucose 147 H, Calcium 9.5, Magnesium 1.8, Total Bilirubin 0.6, AST 33, ALT 26, Alkaline Phosphatase 67, Total Protein 6.6, Albumin 4.0, Globulin 2.6, Albumin/Globulin Ratio 1.5, Lipase 48 02/20/24 18:10: WBC 8.5, RBC 4.48 L, Hgb 11.4 L, Hct 35.3 L, MCV 78.9 L, MCH 25.5 L, MCHC 32.4, RDW 16.7, Plt Count 350, MPV 7.7, Neut % (Auto) 70.7, Lymph % (Auto) 19.9, [place] % (Auto) 7.8, Eos % (Auto) 1.3, Baso % (Auto) 0.5, Neut # (Auto) 6.0, Lymph # (Auto) 1.7, [place] # (Auto) 0.7, Eos # (Auto) 0.1, Baso # (Auto) 0.0 02/20/24 18:15: SARS-CoV-2 (PCR) Not detected, Influenza A Untype (PCR) Not detected, Influenza Type B (PCR) Not detected I & O for Last 24 hours: Intake & Output 02/17/24 02/18/24 02/19/24 02/20/24 23:59 23:59 23:59 23:59 Weight 111.13 kg Constitutional Constitutional: mild distress and cooperative *Routine HEENT Exam Head: Present normocephalic Eye: Present EOMI and PERRL ENT: Present mucous membranes moist *Routine Neck Exam Neck: Present supple; Absent lymphadenopathy *Routine Respiratory Exam Respiratory: Present CTA bilaterally *Routine Cardiovascular Exam Cardiovascular: Present RRR *Routine Abdominal Exam Abdominal: Present soft and normoactive bowel sounds; Absent tenderness *Routine Rectal Exam Rectal:: deferred *Routine Genitalia Exam Genitalia:: deferred *Routine Extremities Exam Extremities: Absent cyanosis, clubbing or edema *Routine Skin Exam Skin: Present warm; Absent rash *Routine Neurological Exam Neurological: Present alert, oriented X3, normal reflexes, moving all extremities and nystagmus Routine Psychiatric Exam Psychiatric: Present good insight Meds Home Medications and Allergies Home Medications Medication Instructions Recorded Confirmed Type omega-3 fatty acids 1,000 mg 1,000 mg PO DAILY Supplement 05/17/18 02/20/24 History capsule (Fish Oil Concentrate) carvedilol 6.25 mg tablet (Coreg) 6.25 mg PO BID #180 tabs 01/13/24 02/20/24 Rx clopidogrel 75 mg tablet 75 mg PO DAILY #90 tabs 01/13/24 02/20/24 Rx aspirin 81 mg tablet,delayed 81 mg PO DAILY 02/01/24 02/20/24 History release fluticasone propionate 50 1 spray intranasal DAILY 02/01/24 02/20/24 History mcg/actuation nasal spray,suspension hydrocortisone 2.5 % topical cream 1 applic [place] BID 02/01/24 02/20/24 History with perineal applicator (Procto-Med HC) omeprazole 20 mg capsule,delayed 20 mg PO DAILY 02/01/24 02/20/24 History release ondansetron 8 mg disintegrating 8 mg PO DAILY 02/01/24 02/20/24 History tablet atorvastatin 80 mg tablet 80 mg PO DAILY 02/21/24 02/20/24 History lisinopril 10 mg tablet 10 mg PO DAILY 02/21/24 02/20/24 History New Prescriptions to Start Prescriptions: Allergies Allergy/AdvReac Type Severity Reaction Status Date / Time No Known Allergies Allergy Verified 02/01/24 15:11 Hospital Course Hospital Course Hospital Course: 68-year-old male with past medical history of coronary artery disease status post stenting, hyperlipidemia, constipation, abdominal pain who presents emergency department for multiple complaints. The most concerning 1 to him his dizziness, onset was acute, Wednesday, nonspecific spinning, difficult to localize which side, no trauma, is able to ambulate. He was also seen recently here for abdominal pain and was diagnosed with constipation and in the interim completed protocol with magnesium citrate with success. However he does have intermittent moderate to severe right hemiabdominal pain that is also causing him concern. Patient's symptoms do not occur at rest when he is holding still and are worse with movement. No acute extremity weakness, no difficulty phonating. Decreased p.o. intake from baseline. Due to the symptoms he presents here for continued evaluation patient has been accepted by [facility] and has been placed on waiting list. Neurology services requested. mean while MRI of the Brain was ordered. Results Data Completed and Pending Labs on day of discharge: Labs from last 24 hours 02/20/24 02/20/24 02/20/24 18:15 18:10 17:10 WBC 8.5 RBC 4.48 L Hgb 11.4 L Hct 35.3 L MCV 78.9 L MCH 25.5 L MCHC 32.4 RDW 16.7 Plt Count 350 MPV 7.7 Neut % (Auto) 70.7 Lymph % (Auto) 19.9 [place] % (Auto) 7.8 Eos % (Auto) 1.3 Baso % (Auto) 0.5 Neut # (Auto) 6.0 Lymph # (Auto) 1.7 [place] # (Auto) 0.7 Eos # (Auto) 0.1 Baso # (Auto) 0.0 Sodium 137 Potassium 3.8 Chloride 102 Carbon Dioxide 26 Anion Gap 12.8 BUN 12 Creatinine 0.60 L Estimated Creat Clear 113 Estimated GFR 134 Est GFR ( Amer) 163 Glucose 147 H Calcium 9.5 Magnesium 1.8 Total Bilirubin 0.6 AST 33 ALT 26 Alkaline Phosphatase 67 Total Protein 6.6 Albumin 4.0 Globulin 2.6 Albumin/Globulin Ratio 1.5 Lipase 48 SARS-CoV-2 (PCR) Not detected Influenza A Untype (PCR) Not detected Influenza Type B (PCR) Not detected DS: Diagnosis Discharge Diagnosis (1) Torsional nystagmus: Status: Acute Code(s): H55.09 - Other forms of nystagmus (2) Abnormal brain CT: Status: Acute Code(s): R90.89 - Other abnormal findings on diagnostic imaging of central nervous system (3) Dizziness: Status: Acute Code(s): R42 - Dizziness and giddiness Discharge Plan Disposition Patient Disposition: Xfer Short-Term Hosp Follow up Plan Prescriptions/Medication Reconciliation: Continued omega-3 fatty acids [Fish Oil Concentrate] 1,000 mg capsule 1,000 mg PO DAILY carvedilol [Coreg] 6.25 mg tablet 6.25 mg PO BID Qty: 180 3RF Rx Instructions: must administer with a meal/food clopidogrel 75 mg tablet 75 mg PO DAILY Qty: 90 3RF aspirin 81 mg tablet,delayed release (DR/EC) 81 mg PO DAILY ondansetron 8 mg tablet,disintegrating 8 mg PO DAILY Patient Comments: DISSOLVE 1 TABLET IN MOUTH NEEDED ONCE DAILY FOR 30 DAYS hydrocortisone [Procto-Med HC] 2.5 % cream with perineal applicator 1 applic [place] BID Patient Comments: APPLY CREAM RECTALLY TO THE AFFECTED AREA TWICE DAILY omeprazole 20 mg capsule,delayed release(DR/EC) 20 mg PO DAILY fluticasone propionate 50 mcg/actuation spray,suspension 1 spray intranasal DAILY Patient Comments: USE 1 SPRAY(S) IN EACH NOSTRIL ONCE DAILY No Action atorvastatin 80 mg tablet 80 mg PO DAILY lisinopril 10 mg tablet 10 mg PO DAILY Problem Reconciliation Problems Reviewed?: Yes Patient Discharge Instructions ACTIVITY: Ambulate as tolerated DIET: continue same diet Providers Primary Care Provider: Karen Orr Admit Provider: Sofia Fountain Attending Provider: Sofia Fountain
[2024-02-20 22:39] LABS: Mycoplasma Pneumo IGM (Rapid) Non-Reactive (Non-Reactiv)
[2024-02-21 04:00] VITALS: BP 155/74; PULSE 73; RESP 18; TEMP 36.8; O2SAT 98; BMI 31.3
--- NOTE | 2024-02-21 07:06 | PC.NURSE ---
VSS, patient rested this shift with no events noted. NPO since midnight.
--- NOTE | 2024-02-21 07:22 | HMH.PHAINT1 ---
Pharmacy Intervention Comments: HOME MEDICATION LIST VERIFIED VIA OUTSIDE PHARMACY
--- NOTE | 2024-02-21 07:42 | MR_ITS ---
FINAL REPORT CLINICAL HISTORY: DIZZINESS COMPARISON: None FINDINGS: Multi planar MR imaging was obtained through the brain without contrast. The midline structures appear intact. There are tiny subtle foci of abnormal signal in the deep white matter bilaterally which are nonspecific and probably related to chronic microvascular ischemia. There is localized signal abnormality in the medial right temporal cortex best seen on images 9 of series 6 and 15 of series 10. On diffusion-weighted images there is no evidence of restricted diffusion. There are mild changes of bilateral maxillary sinusitis. IMPRESSION: Minimal changes of chronic microvascular ischemia. Minimal localized foci of abnormal signal in the medial right temporal cortex may be related to some chronic sequela of ischemia. No definite acute abnormality. Reviewed, Interpreted and Dictated by Evans Flores MD Transcribed by Aracely Marroquin Authenticated and . [facility]
[2024-02-21 08:00] VITALS: BP 137/81; PULSE 82; RESP 23; TEMP 36.6; O2SAT 98
[2024-02-21] MEDS: MORPHINE 2MG/ML SYRINGE 1 MG IV (12:52)
--- NOTE | 2024-02-21 13:09 | P.EN_ITS ---
Patient is accepted at [facility], awaiting bed assignment
[2024-02-21 16:00] VITALS: BP 162/82; PULSE 76; RESP 22; TEMP 36.4; O2SAT 97
--- NOTE | 2024-02-21 17:06 | P.DS_ITS ---
General Admission date:: 02/20/24 Discharge date: 02/21/24 HPI HPI HPI: 68-year-old male with past medical history of coronary artery disease status post stenting, hyperlipidemia, constipation, abdominal pain who presents emergency department for multiple complaints. The most concerning 1 to him his dizziness, onset was acute, Wednesday, nonspecific spinning, difficult to localize which side, no trauma, is able to ambulate. He was also seen recently here for abdominal pain and was diagnosed with constipation and in the interim completed protocol with magnesium citrate with success. However he does have intermittent moderate to severe right hemiabdominal pain that is also causing him concern. Patient's symptoms do not occur at rest when he is holding still and are worse with movement. No acute extremity weakness, no difficulty phonating. Decreased p.o. intake from baseline. Due to the symptoms he presents here for continued evaluation Hospital Course Hospital Course Hospital Course: 68-year-old male with past medical history of coronary artery disease status post stenting, hyperlipidemia, constipation, abdominal pain who presents emergency department for multiple complaints. The most concerning 1 to him his dizziness, onset was acute, Wednesday, nonspecific spinning, difficult to localize which side, no trauma, is able to ambulate. He was also seen recently here for abdominal pain and was diagnosed with constipation and in the interim completed protocol with magnesium citrate with success. However he does have intermittent moderate to severe right hemiabdominal pain that is also causing him concern. Patient's symptoms do not occur at rest when he is holding still and are worse with movement. No acute extremity weakness, no difficulty phonating. Decreased p.o. intake from baseline. Due to the symptoms he presents here for continued evaluation patient has been accepted by [facility], and has been placed on waiting list. Neurology services requested. mean while MRI of the Brain was ordered. which showed Minimal changes of chronic microvascular ischemia. Minimal localized foci of abnormal signal in the medial right temporal cortex may be related to some chronic sequela of ischemia. No definite acute abnormality. Exam Data for Last 24 hours Vital signs and Labs for Last 24 Hours: Temp Pulse Resp BP Pulse Ox O2 Del Method 97.6 F 76 22 162/82 H 97 Room Air 02/21/24 16:00 02/21/24 16:00 02/21/24 16:00 02/21/24 16:00 02/21/24 16:00 02/21/24 16:00 Laboratory Results - last 24 hr 02/20/24 17:10: Sodium 137, Potassium 3.8, Chloride 102, Carbon Dioxide 26, Anion Gap 12.8, BUN 12, Creatinine 0.60 L, Estimated Creat Clear 113, Estimated GFR 134, Est GFR ( Amer) 163, Glucose 147 H, Calcium 9.5, Magnesium 1.8, Total Bilirubin 0.6, AST 33, ALT 26, Alkaline Phosphatase 67, Total Protein 6.6, Albumin 4.0, Globulin 2.6, Albumin/Globulin Ratio 1.5, Lipase 48, Mycoplasma pneumon IgM Non-reactive 02/20/24 18:10: WBC 8.5, RBC 4.48 L, Hgb 11.4 L, Hct 35.3 L, MCV 78.9 L, MCH 25.5 L, MCHC 32.4, RDW 16.7, Plt Count 350, MPV 7.7, Neut % (Auto) 70.7, Lymph % (Auto) 19.9, [place] % (Auto) 7.8, Eos % (Auto) 1.3, Baso % (Auto) 0.5, Neut # (Auto) 6.0, Lymph # (Auto) 1.7, [place] # (Auto) 0.7, Eos # (Auto) 0.1, Baso # (Auto) 0.0 02/20/24 18:15: SARS-CoV-2 (PCR) Not detected, Influenza A Untype (PCR) Not detected, Influenza Type B (PCR) Not detected I & O for Last 24 hours: Intake & Output 02/18/24 02/19/24 02/20/24 02/21/24 23:59 23:59 23:59 23:59 Intake Total 360 / 360 Output Total 0 / 0 Balance 360 / 360 Weight 111.13 kg 104.808 kg Constitutional Constitutional: no acute distress *Routine HEENT Exam Head: Present normocephalic Eye: Present EOMI and PERRL ENT: Present mucous membranes moist *Routine Neck Exam Neck: Present supple; Absent lymphadenopathy *Routine Respiratory Exam Respiratory: Present CTA bilaterally *Routine Cardiovascular Exam Cardiovascular: Present RRR *Routine Abdominal Exam Abdominal: Present soft and normoactive bowel sounds; Absent tenderness *Routine Extremities Exam Extremities: Absent cyanosis, clubbing or edema *Routine Skin Exam Skin: Present warm; Absent rash *Routine Neurological Exam Neurological: Present alert and oriented X3 Results Data Completed and Pending Labs on day of discharge: Labs from last 24 hours 02/20/24 02/20/24 02/20/24 18:15 18:10 17:10 WBC 8.5 RBC 4.48 L Hgb 11.4 L Hct 35.3 L MCV 78.9 L MCH 25.5 L MCHC 32.4 RDW 16.7 Plt Count 350 MPV 7.7 Neut % (Auto) 70.7 Lymph % (Auto) 19.9 [place] % (Auto) 7.8 Eos % (Auto) 1.3 Baso % (Auto) 0.5 Neut # (Auto) 6.0 Lymph # (Auto) 1.7 [place] # (Auto) 0.7 Eos # (Auto) 0.1 Baso # (Auto) 0.0 Sodium 137 Potassium 3.8 Chloride 102 Carbon Dioxide 26 Anion Gap 12.8 BUN 12 Creatinine 0.60 L Estimated Creat Clear 113 Estimated GFR 134 Est GFR ( Amer) 163 Glucose 147 H Calcium 9.5 Magnesium 1.8 Total Bilirubin 0.6 AST 33 ALT 26 Alkaline Phosphatase 67 Total Protein 6.6 Albumin 4.0 Globulin 2.6 Albumin/Globulin Ratio 1.5 Lipase 48 SARS-CoV-2 (PCR) Not detected Influenza A Untype (PCR) Not detected Influenza Type B (PCR) Not detected Mycoplasma pneumon IgM Non-reactive DS: Diagnosis Discharge Diagnosis (1) Torsional nystagmus: Status: Acute Code(s): H55.09 - Other forms of nystagmus (2) Abnormal brain CT: Status: Acute Code(s): R90.89 - Other abnormal findings on diagnostic imaging of central nervous system (3) Dizziness: Status: Acute Code(s): R42 - Dizziness and giddiness Meds Home Medications and Allergies Home Medications Medication Instructions Recorded Confirmed Type omega-3 fatty acids 1,000 mg 1,000 mg PO DAILY Supplement 05/17/18 02/20/24 History capsule (Fish Oil Concentrate) carvedilol 6.25 mg tablet (Coreg) 6.25 mg PO BID #180 tabs 01/13/24 02/20/24 Rx clopidogrel 75 mg tablet 75 mg PO DAILY #90 tabs 01/13/24 02/20/24 Rx aspirin 81 mg tablet,delayed 81 mg PO DAILY 02/01/24 02/20/24 History release fluticasone propionate 50 1 spray intranasal DAILY 02/01/24 02/20/24 History mcg/actuation nasal spray,suspension hydrocortisone 2.5 % topical cream 1 applic [place] BID 02/01/24 02/20/24 History with perineal applicator (Procto-Med HC) omeprazole 20 mg capsule,delayed 20 mg PO DAILY 02/01/24 02/20/24 History release ondansetron 8 mg disintegrating 8 mg PO DAILY 02/01/24 02/20/24 History tablet atorvastatin 80 mg tablet 80 mg PO DAILY 02/21/24 02/20/24 History lisinopril 10 mg tablet 10 mg PO DAILY 02/21/24 02/20/24 History New Prescriptions to Start Prescriptions: Allergies Allergy/AdvReac Type Severity Reaction Status Date / Time No Known Allergies Allergy Verified 02/01/24 15:11 Discharge Plan Disposition Patient Disposition: Xfer Short-Term Hosp Follow up Plan Prescriptions/Medication Reconciliation: Continued omega-3 fatty acids [Fish Oil Concentrate] 1,000 mg capsule 1,000 mg PO DAILY carvedilol [Coreg] 6.25 mg tablet 6.25 mg PO BID Qty: 180 3RF Rx Instructions: must administer with a meal/food clopidogrel 75 mg tablet 75 mg PO DAILY Qty: 90 3RF aspirin 81 mg tablet,delayed release (DR/EC) 81 mg PO DAILY ondansetron 8 mg tablet,disintegrating 8 mg PO DAILY Patient Comments: DISSOLVE 1 TABLET IN MOUTH NEEDED ONCE DAILY FOR 30 DAYS hydrocortisone [Procto-Med HC] 2.5 % cream with perineal applicator 1 applic [place] BID Patient Comments: APPLY CREAM RECTALLY TO THE AFFECTED AREA TWICE DAILY omeprazole 20 mg capsule,delayed release(DR/EC) 20 mg PO DAILY fluticasone propionate 50 mcg/actuation spray,suspension 1 spray intranasal DAILY Patient Comments: USE 1 SPRAY(S) IN EACH NOSTRIL ONCE DAILY No Action atorvastatin 80 mg tablet 80 mg PO DAILY lisinopril 10 mg tablet 10 mg PO DAILY Problem Reconciliation Problems Reviewed?: Yes Patient Discharge Instructions ACTIVITY: Ambulate as tolerated DIET: continue same diet Providers Primary Care Provider: Karen Orr Admit Provider: Sofia Fountain Attending Provider: Sofia Fountain
--- NOTE | 2024-02-21 18:29 | PC.NURSE ---
Per Александр, pt is ok to go to POV to [facility]
--- NOTE | 2024-02-21 18:40 | PC.NURSE ---
Ok'd per scalehouse attendant to leave IV in place for POV transport to [facility] because of the amount of attempts it took to get the IV established. IV has been wrapped with shower guard and coban. [facility] aware.
--- NOTE | 2024-02-21 19:35 | PC.NURSE ---
pt left floor with family to go [facility] at this time
[2024-02-22 06:12] LABS: Toxoplasma gondii Ab,IgG,Qn 45.5 IU/mL (0.0-7.1)
[2024-02-22 14:46] LABS: Rapid Plasma Reagin Ab Titer Non Reactive titer (NonRea<1:1)
[2024-02-22 15:10] LABS: Tissue Transglutaminase IgG Ab <2 U/mL (0-5)
[2024-02-22 21:19] LABS: QuantiFERON-TB Gold Plus Negative (Negative)
[2024-02-23 14:12] LABS: Strongyloides IgG Antibody Negative (Negative)
[2024-02-23 20:09] LABS: Legionella pneumophila Abs. Non Reactive (Non Reactive)
[2024-02-24 16:28] LABS: Legionella pneumophila Urinary Negative (Negative)
== END 2024-02-21 19:45 | disposition short-term general hospital (02) ==
LOC: ER 16:27 → 2ND 22:25
PROVIDERS: Nurse Practitioner Family; Admitting Provider Internal Medicine; Emergency Provider Emergency Medicine; PCP Nurse Practitioner Family; Visit Provider Internal Medicine
DX: H55.09 Other forms of nystagmus (principal); I25.10 Atherosclerotic heart disease of native coronary artery without angina pectoris; Z95.5 Presence of coronary angioplasty implant and graft; E78.5 Hyperlipidemia, unspecified; K59.00 Constipation, unspecified; I25.2 Old myocardial infarction
CPT/HCPCS: 70450; 70496; 70498; 70551; 71045; 74177; 80053; 83516; 83690; 83735; 85025; 86480; 86593; 86682; 86713; 86720; 86738; 86777; 87636; 93005; 99285; G0378; Q9967

== ENCOUNTER 2024-03-04 20:33 | Emergency (ER) | payer BC, SELFPAY ==
[2024-03-04] VITALS (7 sets, daily range): BP systolic 91–149; BP diastolic 45–73; PULSE 74–94; RESP 14–22; TEMP 36.9; O2SAT 92–98; BMI 30.5; BMI 32.1
--- NOTE | 2024-03-04 20:41 | CT_ITS ---
PROCEDURE INFORMATION: Exam: CTA Head With Contrast, Arteriography Exam date and time: 03/04/2024 10:08 PM Age: 68 years old Clinical indication: Stroke-like symptoms; Left facial droop; Additional info: Rle deficit; Left facial palsy TECHNIQUE: Imaging protocol: Computed tomographic angiography of the head with contrast. Exam focused on the arteries. 3D rendering (Not supervised by radiologist): MIP and/or 3D reconstructed images were created by the technologist. Radiation optimization: All CT scans at this facility use at least one of these dose optimization techniques: automated exposure control; mA and/or kV adjustment per patient size (includes targeted exams where dose is matched to clinical indication); or iterative reconstruction. Contrast material: ISOUVE 370; Contrast volume: 100 ml; Contrast route: INTRAVENOUS (IV); COMPARISON: CT ANGIO HEAD 02/20/2024 5:57 PM FINDINGS: ANTERIOR CIRCULATION: Right internal carotid artery: Atherosclerosis of the right internal carotid artery, without significant stenosis or occlusion intracranially. No aneurysm. Right middle cerebral artery: No occlusion or significant stenosis. No aneurysm. Right anterior cerebral artery: No occlusion or significant stenosis. No aneurysm. Left internal carotid artery: Atherosclerosis of the left internal carotid artery, with mild stenosis. Left middle cerebral artery: No occlusion or significant stenosis. No aneurysm. 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 The remaining left LYNN is patent. POSTERIOR CIRCULATION: Right vertebral artery: No occlusion or significant stenosis. No aneurysm. Left vertebral artery: No occlusion or significant stenosis. No aneurysm. Basilar artery: No occlusion or significant stenosis. No aneurysm. Right posterior cerebral artery: No occlusion or significant stenosis. No aneurysm. Left posterior cerebral artery: No occlusion or significant stenosis. No aneurysm. Veins: Evaluation of the dural venous sinuses is limited by suboptimal dural venous enhancement. Brain: For discussion of intracranial findings, refer to the head CT report from the same day. Cerebral ventricles: No ventriculomegaly. Bones/joints: No acute fracture. Soft tissues: Unremarkable. IMPRESSION: 1. No large vessel arterial occlusion on this CTA head. 2. Atherosclerosis of the left internal carotid artery, with mild stenosis. 3. Additional findings described above.
--- NOTE | 2024-03-04 20:41 | CT_ITS ---
PROCEDURE INFORMATION: Exam: CT Head Without Contrast Exam date and time: 03/04/2024 10:00 PM Age: 68 years old Clinical indication: Stroke-like symptoms; Left facial droop; Additional info: Rle deficit; Left facial palsy TECHNIQUE: Imaging protocol: Computed tomography of the head without contrast. Radiation optimization: All CT scans at this facility use at least one of these dose optimization techniques: automated exposure control; mA and/or kV adjustment per patient size (includes targeted exams where dose is matched to clinical indication); or iterative reconstruction. Other technique: STROKE PROTOCOL was implemented. COMPARISON: 1. CT HEAD/BRAIN WO CON 02/20/2024 5:53 PM 2. MR HEAD/BRAIN WO CON 02/21/2024 7:48 AM FINDINGS: Brain: Multiple nodular foci of increased density are identified. Within the medial left occipital lobe, this measures 8-9 mm, new compared to the prior CT. Within the medial right temporal lobe on series 3, image 29, this measures 8-9 mm, with a mild progression in size. Additional small nodular foci are seen within the medial right temporal lobe, quadrigeminal plate cistern, medial left occipital lobe/parafalcine region, and lateral to the daniella on the left side. Differential considerations include metastatic disease, neurosarcoidosis, and meningitis. No acute subarachnoid or subdural hemorrhage is visualized. A few foci of hypodensity are visualized involving the inferior left cerebellar lobe, new compared to the prior CT. These are concerning for acute/subacute infarcts. Mild sulcal atrophy is visualized. The purcell-white differentiation is otherwise preserved. There is no significant midline shift. A tiny nonacute stable lacunar infarct is visualized involving the right thalamus. Cerebral ventricles: An equivocal small nodular abnormality is identified in the region of the inferior 4th ventricle. No hydrocephalus. Paranasal sinuses: Mucosal thickening is visualized of the bilateral maxillary sinuses. Mastoid air cells: No mastoid effusion. Bones: The calvarium demonstrates no evidence for a depressed fracture. Soft tissues: Unremarkable. Vasculature: Intracranial atherosclerosis visualized. IMPRESSION: 1. A few foci of hypodensity are visualized involving the inferior left cerebellar lobe, new compared to the prior CT. These are concerning for acute/subacute infarcts. Correlation with an MRI of the brain with/without contrast is recommended. 2. Multiple nodular foci of increased density are identified, which are both intra and extra-axial. Differential considerations include metastatic disease, neurosarcoidosis, and meningitis. Correlation with an MRI of the brain with/without contrast and possible lumbar puncture are recommended. 3. A tiny nonacute lacunar infarct is visualized involving the right thalamus. 4. Additional findings described above. ASSESSMENT: ASPECTS ([place] Stroke Program Early CT Score) is 10.
--- NOTE | 2024-03-04 20:42 | CT_ITS ---
PROCEDURE INFORMATION: Exam: CTA Neck With Contrast Exam date and time: 03/04/2024 10:10 PM Age: 68 years old Clinical indication: Stroke-like symptoms; Left facial droop; Additional info: Rle, left side facial palsy TECHNIQUE: Imaging protocol: Computed tomographic angiography of the neck with contrast. Exam focused on the cervical segments of the vasculature. 3D rendering (Not supervised by radiologist): MIP and/or 3D reconstructed images were created by the technologist. Radiation optimization: All CT scans at this facility use at least one of these dose optimization techniques: automated exposure control; mA and/or kV adjustment per patient size (includes targeted exams where dose is matched to clinical indication); or iterative reconstruction. Contrast material: ISOUVE 370; Contrast volume: 100 ml; Contrast route: INTRAVENOUS (IV); COMPARISON: CT ANGIO NECK 02/20/2024 5:57 PM FINDINGS: Right common carotid artery: No significant stenosis. No dissection or occlusion. Right internal carotid artery: Atherosclerosis and less than 50% stenosis visualized of the proximal right internal carotid artery. Right external carotid artery: No occlusion or significant stenosis. Left common carotid artery: Artifact limits evaluation of the proximal and mid left common carotid artery, without occlusion. No significant stenosis or occlusion of the remaining left common carotid artery. Left internal carotid artery: Atherosclerosis and less than 50% stenosis of the proximal left internal carotid artery. Left external carotid artery: No occlusion or significant stenosis. Right vertebral artery: Severe stenosis is visualized of the V1 segment the right vertebral artery proximally. Atherosclerosis identified. Left vertebral artery: Venous enhancement and artifact limit evaluation of the V1 segment of the left vertebral artery, without definitive occlusion. Mild stenosis identified of the V3 segment of the left vertebral artery. Atherosclerosis. Right subclavian artery: The right subclavian artery is patent as visualized. Left subclavian artery: Mild stenoses are visualized of the left subclavian artery, with atherosclerosis and noncalcified plaque. Aorta: Atherosclerosis of the aortic arch is identified. Pharynx: Calcifications are identified involving the bilateral palatine tonsils. Soft tissues: No significant soft tissue swelling. Bones/joints: Degenerative changes are visualized involving the cervical and upper thoracic spine. Varying degrees of spinal canal stenoses and neural foraminal narrowing are visualized at cervical levels. Artifact limits evaluation of the spinal canal. There is significant rotation of C1 on C2, with 7 mm anterolisthesis of the left C1 lateral mass on C2. Lungs: Patchy areas of ground-glass density are identified within the lungs bilaterally. Atypical pneumonia is within the differential. Esophagus: A fluid-filled esophagus is partially visualized. The patient is at risk for aspiration. Other findings: For discussion of findings within the chest, refer to the chest CT report from the same day. IMPRESSION: 1. Severe stenosis is visualized of the V1 segment the right vertebral artery proximally. This has progressed. 2. Atherosclerosis and less than 50% stenosis visualized of the proximal right internal carotid artery. 3. Atherosclerosis and less than 50% stenosis of the proximal left internal carotid artery. 4. Mild stenoses are visualized of the left subclavian artery. 5. Mild stenosis identified of the V3 segment of the left vertebral artery. 6. Patchy areas of ground-glass density are identified within the lungs bilaterally. Atypical pneumonia is within the differential. Clinical correlation recommended. 7. There is significant rotation of C1 on C2, with 7 mm anterolisthesis of the left C1 lateral mass on C2. 8. A fluid-filled esophagus is partially visualized. The patient is at risk for aspiration. 9. Additional findings described above. REFERENCES: NASCET CRITERIA. The degree of stenosis in the cervical segment of the internal carotid artery is based on NASCET criteria. Normal is no stenosis. Mild is less than 50% stenosis. Moderate is 50-69% stenosis. Severe is 70% to 99% stenosis. Total occlusion is no detectable patent lumen.
--- NOTE | 2024-03-04 20:43 | ECG_ITS ---
APPROVED REPORT Exam: Resting ECG HR:97 bpm ECG Measurements Heart Rate 97 AXES MA 144 P 34 QRSd 96 QRS 67 QT 333 T 44 QTc 388 Conclusion SINUS RHYTHM NORMAL ECG Electronically signed by : RONEN TORRE, 03/05/2024 07:19:56
--- NOTE | 2024-03-04 20:46 | CT_ITS ---
PROCEDURE INFORMATION: Exam: CT Abdomen And Pelvis With Contrast Exam date and time: 03/04/2024 10:14 PM Age: 68 years old Clinical indication: Vomiting; Additional info: Recent duodenal stent placed. Sever pain and vomit TECHNIQUE: Imaging protocol: Computed tomography of the abdomen and pelvis with contrast. Radiation optimization: All CT scans at this facility use at least one of these dose optimization techniques: automated exposure control; mA and/or kV adjustment per patient size (includes targeted exams where dose is matched to clinical indication); or iterative reconstruction. Contrast material: ISOVUE; Contrast volume: 100 ml; Contrast route: IV; COMPARISON: 1. CT ABDOMEN PELVIS W CON 02/20/2024 6:07 PM 2. CR XR KUB 02/18/2024 4:[address] ANGIO CHEST 03/04/2024 10:14 PM FINDINGS: Tubes, catheters and devices: There is a esophageal stent in place. Liver: There are low-density lesions in the liver which most likely reflect a combination of cysts and/or hemangiomas. Gallbladder and bile ducts: No acute process. Pancreas: Normal. Spleen: Normal. Adrenal glands: The adrenal glands appear normal. Kidneys and ureters: Simple appearing right renal cyst. Stomach and bowel: The stomach, small bowel, and colon are well-distended and show no evidence of wall thickening, masses, or obstruction. Appendix: No evidence of appendicitis. Intraperitoneal space: Unremarkable. Vasculature: The abdominal aorta and its major branches appear normal without evidence of aneurysm or stenosis. There are pelvic phleboliths. Lymph nodes: No lymphadenopathy. Urinary bladder: There is significant distension of the urinary bladder. Reproductive: No acute process. Bones/joints: The visualized osseous structures of the abdomen and pelvis appear normal for patient age. Soft tissues: Unremarkable. IMPRESSION: 1. There is significant distension of the urinary bladder. 2. Stent of the lower esophageal sphincter, given history is duodenal stent. Correlate for retrograde migration. COMMENTS: Consistent with the [employer]'s Incidental Findings Committee white paper (J Am Maddy Radiol 2018): Any incidental renal lesion less than 1 cm or classified as too small to characterize, or any incidental cystic renal lesion characterized as simple-appearing, is likely benign. No follow-up imaging is recommended for these lesions per consensus recommendations based on imaging criteria.
--- NOTE | 2024-03-04 20:46 | CT_ITS ---
PROCEDURE INFORMATION: Exam: CTA Chest With Contrast Exam date and time: 03/04/2024 10:14 PM Age: 68 years old Clinical indication: Other: Severe vomitnig; Prior surgery; Surgery date: 3-7 days post-operative; Surgery type: Recent duodenal stent placed; Additional info: Recent duodenal stent placed, devere vomitnig and TECHNIQUE: Imaging protocol: Computed tomographic angiography of the chest with contrast. Exam focused on the arteries. 3D rendering (Not supervised by radiologist): MIP and/or 3D reconstructed images were created by the technologist. Radiation optimization: All CT scans at this facility use at least one of these dose optimization techniques: automated exposure control; mA and/or kV adjustment per patient size (includes targeted exams where dose is matched to clinical indication); or iterative reconstruction. Contrast material: ISOUVE 370; Contrast volume: 100 ml; Contrast route: INTRAVENOUS (IV); COMPARISON: 1. CR XR CHEST PORTABLE 02/20/2024 10:16 PM 2. CR XR CHEST 2V 02/18/2024 3:12 PM 3. CR XR CHEST 2V 02/01/2024 4:33 PM FINDINGS: Pulmonary arteries: Normal. No pulmonary emboli. Aorta: Unremarkable. No aortic aneurysm. No aortic dissection. Lungs: Parenchymal consolidations in the lower lobe could reflect developing infection or aspiration could also be considered. Pleural spaces: Unremarkable. No pneumothorax. No pleural effusion. Heart: Unremarkable. No cardiomegaly. No pericardial effusion. Coronary arteries: There is moderate coronary atherosclerotic disease/calcification although evaluation is limited secondary to the non gated nature of the study. Esophagus: There is a patulous distended esophagus with a lower esophageal sphincter stent in place. Lymph nodes: There are calcified mediastinal lymph nodes likely reflecting prior granulomatous disease. Stomach and bowel: Given clinical history is duodenal stent, correlate for retrograde migration. Intraperitoneal space: Please see the dedicated interpretation of abdomen and pelvis for findings in that region. Bones/joints: Unremarkable. No acute fracture. Soft tissues: Unremarkable. IMPRESSION: 1. Parenchymal consolidations in the lower lobe could reflect developing infection or aspiration could also be considered. 2. There is a patulous distended esophagus with a lower esophageal sphincter stent in place. 3. Given clinical history is duodenal stent, correlate for retrograde migration. 4. Please see the dedicated interpretation of abdomen and pelvis for findings in that region.
[2024-03-04 20:56] LABS: Basophils % 0.2 % (0.1-2.0); Eosinophils # 0.1 K/mm3 (0.0-0.4); Eosinophils % 0.4 % (0.1-12.0); Hematocrit 35.3 % (42.0-52.0); Hemoglobin 11.6 g/dL (14.1-18.0); Lymphocytes # 1.1 K/mm3 (0.7-4.5); Lymphocytes % 6.9 % (10-50); Mean Corpuscular HGB Conc 32.9 g/dL (31.8-35.4); Mean Corpuscular Hemoglobin 25.9 pg (27.0-31.2); Mean Corpuscular Volume 78.6 fl (80-94); Mean Platelet Volume 8.3 fl (7.4-10.4); Monocytes # 0.4 K/mm3 (0.1-1.0); Monocytes % 2.6 % (1.7-9.3); Neutrophils # 14.9 K/mm3 (1.8-7.8); Neutrophils % 89.9 % (37.0-80.0); Platelet Count 390 K/mm3 (142-424); Red Blood Count 4.49 M/mm3 (4.60-6.20); Red Cell Distribution Width 17.1 % (11.5-17.5); White Blood Count 16.6 K/mm3 (4.8-10.8)
[2024-03-04 20:57] LABS: MANUAL DIFFERENTIAL MANUAL DIFFERENTIAL (MANUAL DIFF)
[2024-03-04 20:59] LABS: Chloride 102 mmol/L (98-107); Sodium 134 mmol/L (136-145)
[2024-03-04 21:02] LABS: Alanine Aminotransferase 30 U/L (12-78); Albumin Level 3.6 g/dl (3.5-5.0); Albumin/Globulin Ratio 1.4 (1.1-1.8); Alkaline Phosphatase 65 U/L (38-126); Aspartate Amino Transferase 26 U/L (17-59); Bilirubin,Total 0.9 mg/dl (0.2-1.3); Blood Urea Nitrogen 32 mg/dl (9-20); Carbon Dioxide 28 mmol/L (22.0-30.0); Creatinine Clearance Estimated 115 mL/min (50-200); Estimated Glomerular Filt Rate 84 ml/min (>60); GFR (African American) 102 ML/MIN (>60); Globulin 2.5 g/dL (1.3-3.2); Total Protein,Serum 6.1 g/dl (6.3-8.2)
[2024-03-04 21:03] LABS: Calcium 9.3 mg/dl (8.4-10.2); Glucose 113 mg/dl (74-100)
[2024-03-04] MEDS: ONDANSETRON 4MG/2ML VIAL 4 MG IV (21:04)
[2024-03-04] MEDS: LACTATED RINGERS 1000ML 1,000 ML 999 ML IV (21:04)
--- NOTE | 2024-03-04 21:04 | ED_ITS ---
Discharge Plan Disposition Patient Disposition: Xfer Short-Term Hosp Condition: Good Chief Complaint: Weakness Prescriptions Prescriptions: No Action carvedilol [Coreg] 6.25 mg tablet 6.25 mg PO BID Qty: 180 3RF Rx Instructions: must administer with a meal/food clopidogrel 75 mg tablet 75 mg PO DAILY Qty: 90 3RF aspirin 81 mg tablet,delayed release (DR/EC) 81 mg PO DAILY ondansetron 8 mg tablet,disintegrating 8 mg PO DAILY Patient Comments: DISSOLVE 1 TABLET IN MOUTH NEEDED ONCE DAILY FOR 30 DAYS hydrocortisone [Procto-Med HC] 2.5 % cream with perineal applicator 1 applic VT BID Patient Comments: APPLY CREAM RECTALLY TO THE AFFECTED AREA TWICE DAILY cyanocobalamin (vitamin B-12) 500 mcg tablet 500 mcg PO DAILY bisacodyl 10 mg suppository 10 mg VT DAILY PRN pantoprazole 40 mg tablet,delayed release (DR/EC) PO Patient Comments: TAKE 1 TABLET BY MOUTH ONCE DAILY FOR 30 DAYS polyethylene glycol 3350 17 gram/dose powder 17 g PO DAILY PRN Patient Comments: MIX 17 GRAMS OF POWDER IN 8 OUNCES OF LIQUID AND DRINK ONCE DAILY oxycodone 5 mg tablet 5 mg PO Q4H Patient Comments: TAKE 1 TABLET BY MOUTH EVERY 4 HOURS NEEDED FOR 3 DAYS (MAX DAILY AMOUNT 30MG) atorvastatin 20 mg/5 mL (4 mg/mL) suspension 80 mg PO DAILY 90 Days Qty: 1800 1RF dexamethasone 4 mg tablet 4 mg PO BID 7 Days Qty: 14 0RF lisinopril 10 mg tablet 10 mg PO DAILY Referrals Follow up/Referrals: Karen Orr APRN [Primary Care Provider] - See instructions Clinical Impressions Clinical Impression: Acute hypoxemic respiratory failure, Encephalopathy acute, Pneumonia, Intracranial mass, Acute CVA (cerebrovascular accident) Stand Alone Forms Stand Alone Forms: Transfer Record - ED Discharge ED Provider: Moses Conrad General Adult HPI General Chief complaint: Weakness Stated complaint: possibly deheydrated, weakness, vomiting Time Seen by Provider: 03/04/24 20:45 Mode of Arrival: Wheelchair Source of Information: Patient and Spouse Limitations: Physical Limitations Description of Symptoms (Recalled from ER Triage Doc. by RN): Pt presents with increased weakness and confusion noted by spouse this afternoon. Pt has hx of esophageal and adrenal CA. Spouse states he had esophageal stents placed on Ruben, Since then he has had decreased intake, and projectile vomiting. Dr Conrad at bedside. Pt due to start radiation tx on Wednesday. History of Present Illness HPI narrative: Please note that above description of symptoms, in this electronic medical record under categorization of recalled from ER triage doctor by RN are reflective of an initial nursing assessment, however, is not reflective of my full history and physical exam that was personally taken and clarified. Consequentially, this preceding description of symptoms, which may include the patient's categorized chief complaint in the EMR, do not reflect my personal clinical impression, and the ultimate description of history of present illness and patient stated complaints should be deferred to this section of the note. Unless stated otherwise or congruent with this section of the note, additional signs, symptoms, or incongruence should be interpreted as inaccurate with my clinical impression. Related Data Home Medications Medication Instructions Recorded Confirmed aspirin 81 mg tablet,delayed 81 mg PO DAILY 02/01/24 02/29/24 release hydrocortisone 2.5 % topical cream 1 applic VT BID 02/01/24 02/29/24 with perineal applicator (Procto-Med ) ondansetron 8 mg disintegrating 8 mg PO DAILY 02/01/24 02/29/24 tablet lisinopril 10 mg tablet 10 mg PO DAILY 02/21/24 02/29/24 bisacodyl 10 mg rectal suppository 10 mg VT DAILY PRN 02/29/24 02/29/24 cyanocobalamin (vitamin B-12) 500 500 mcg PO DAILY 02/29/24 02/29/24 mcg tablet oxycodone 5 mg tablet 5 mg PO Q4H 02/29/24 02/29/24 pantoprazole 40 mg tablet,delayed mg PO 02/29/24 02/29/24 release polyethylene glycol 3350 17 17 g PO DAILY PRN 02/29/24 02/29/24 gram/dose oral powder Previous Rx's Medication Instructions Recorded carvedilol 6.25 mg tablet (Coreg) 6.25 mg PO BID #180 tabs 01/13/24 clopidogrel 75 mg tablet 75 mg PO DAILY #90 tabs 01/13/24 atorvastatin 20 mg/5 mL (4 mg/mL) 80 mg (20 mL) PO DAILY 90 days 03/03/24 oral suspension #1,800 mL dexamethasone 4 mg tablet 4 mg PO BID 7 days #14 tabs 03/03/24 Allergies Allergy/AdvReac Type Severity Reaction Status Date / Time No Known Allergies Allergy Verified 02/29/24 09:03 [facility] Disclaimer: The information contained in this section may have been updated after the patient was seen, as this information can be updated by other users. Medical History (Updated 03/04/24 @ 23:41 by Moses Conrad MD) Cancer of esophagus Brain lesion Abnormal endoscopy of upper gastrointestinal tract Mass of esophagus Abdominal pain Constipation Nausea Cough Memory disturbance Near syncope Fracture of hand Gastro-esophageal reflux Dizziness Hyperlipidemia Hypertensive heart disease Coronary arteriosclerosis Heart attack Dyspnea Angina, class III Abnormal EKG Surgical History Stented coronary artery Hx of heart artery stent S/P cardiac catheterization Family History Father Coronary artery disease Mother Hypertension Social History Smoking Status: Never smoker second hand exposure: No alcohol intake: never substance use type: denies use current occupational status: employed Travel in the last 8 weeks: None household members: spouse housing: house caffeine: Yes ROS Obtained: Yes All systems reviewed & no additional complaints except as documented Physical Exam General General appearance: alert and in no apparent distress Head Head exam: atraumatic and normocephalic Eye Eye exam: Present normal appearance, PERRL and EOMI ENT ENT exam: Present mucous membranes moist Neck Neck exam: Present normal inspection, full ROM and trachea midline Respiratory Respiratory exam: Absent respiratory distress, wheezes, stridor, accessory muscle use or prolonged expiratory phase Cardiovascular Cardiovascular exam: Present normal rhythm Abdominal Exam Abdominal exam: Present soft; Absent distention, tenderness, guarding, rebound or rigidity Extremities Exam Extremities exam: Absent edema Neurological Exam Neurological exam: Present alert, oriented X3, CN II-XII intact and normal gait; Absent motor sensory deficit Skin Skin exam: Present warm and dry; Absent diaphoresis or erythema Medical Decision Making Medical Records Medical records reviewed: Yes I reviewed the patient's medical records. Nicko Inquiry Pt receiving controlled substance: No Nicko was queried for this patient: No Vital Signs: 03/04/24 20:34 03/04/24 20:45 03/04/24 21:45 Temperature 98.4 F Temperature Source Oral Pulse Rate 89 91 H Pulse Rate [Left] 94 H Respiratory Rate 22 22 22 Blood Pressure 124/53 L 91/45 L Blood Pressure [Right Arm] 116/64 Blood Pressure Mean [Right Arm] 81 Blood Pressure Source [Right Arm] Automatic Cuff Blood Pressure Position [Right Arm] Sitting 02 Sat by Pulse Oximetry 92 L 93 L 92 L Oxygen Delivery Method Room Air Room Air Nasal Cannula 03/04/24 22:00 03/04/24 22:30 Temperature Temperature Source Pulse Rate 83 85 Pulse Rate [Left] Respiratory Rate 16 14 Blood Pressure 149/64 H 131/73 Blood Pressure [Right Arm] Blood Pressure Mean [Right Arm] Blood Pressure Source [Right Arm] Blood Pressure Position [Right Arm] 02 Sat by Pulse Oximetry 94 L 94 L Oxygen Delivery Method Room Air Room Air Lab Data Lab Results 03/04/24 20:40: WBC 16.6 H, RBC 4.49 L, Hgb 11.6 L, Hct 35.3 L, MCV 78.6 L, MCH 25.9 L, MCHC 32.9, RDW 17.1, Plt Count 390, MPV 8.3, Neut % (Auto) 89.9 H, Lymph % (Auto) 6.9 L, Mck[place]ley % (Auto) 2.6, Eos % (Auto) 0.4, Baso % (Auto) 0.2, Neut # (Auto) 14.9 H, Lymph # (Auto) 1.1, Mck[place]ley # (Auto) 0.4, Eos # (Auto) 0.1, Baso # (Auto) 0.0, Total Counted 100, Neutrophils % (Manual) 87 H, Lymphocytes % (Manual) 12, Monocytes % (Manual) 1 L, Platelet Estimate Normal, RBC Morphology Normal, Sodium 134 L, Potassium 4.0, Chloride 102, Carbon Dioxide 28, Anion Gap 8.0, BUN 32 H, Creatinine 0.90, Estimated Creat Clear 115, Estimated GFR 84, Est GFR ( Amer) 102, Glucose 113 H, Calcium 9.3, Total Bilirubin 0.9, AST 26, ALT 30, Alkaline Phosphatase 65, Troponin I < 0.01, Total Protein 6.1 L, Albumin 3.6, Globulin 2.5, Albumin/Globulin Ratio 1.4 03/04/24 20:48: VBG pH 7.37, VBG pCO2 38.7, VBG pO2 29.6, VBG HCO3 22.0 L, VBG Total CO2 23.2, VBG O2 Saturation 49.1 L, VBG Base Excess -3.2 L, VBG Lactic Acid 2.6 H 03/04/24 22:45: Urine Color Yellow, Urine Appearance Clear, Urine pH 6.5, Ur Specific [place] 1.010, Urine Protein Negative, Urine Glucose (UA) Negative, Urine Ketones Negative, Urine Blood Negative, Urine Nitrate Negative, Urine Bilirubin Negative, Urine Urobilinogen 1.0, Ur Leukocyte Esterase Negative, Urine RBC None, Urine WBC None, Ur Squamous Epith Cells Occasional, Urine Bacteria Trace, Hyaline Casts 3-5, Urine Mucus Trace 03/04/24 20:40 03/04/24 20:40 Orders (Tests/Meds): ED MEDICATIONS Generic Name Dose Route Start Last Admin Trade Name Yumiko PRN Reason Stop Dose Admin Ceftriaxone Sodium 2 gm/ 100 mls @ 200 mls/hr 03/04/24 23:29 03/04/24 23:35 Sodium Chloride IV 03/04/24 23:58 200 mls/hr ONCE ONE Administration Sodium Chloride 10 ml 03/04/24 21:17 Sodium Chloride 0.9% 10ml Vial IV 04/03/24 21:16 NEEDED PRN to Dilute Lorazepam inj Sodium Chloride 10 ml 03/04/24 22:47 03/04/24 22:48 Sodium Chloride 0.9% 10ml Syr (Rad Only) IV 04/03/24 22:46 10 ml NEEDED PRN Administration Maintain IV Site Discontinued Medications Generic Name Dose Route Start Last Admin Trade Name Yumiko PRN Reason Stop Dose Admin Dexamethasone Sodium Phosphate 10 mg 03/04/24 21:20 03/04/24 21:28 Dexamethasone 4mg/Ml 1ml Vial IV 03/04/24 21:21 10 mg ONCE ONE Administration Hydromorphone HCl 1 mg 03/04/24 21:32 03/04/24 21:35 Hydromorphone 2mg/Ml Syringe IV 03/04/24 21:33 1 mg ONCE ONE Administration Hydromorphone HCl 1 mg 03/04/24 21:34 03/04/24 21:36 Hydromorphone 2mg/Ml Syringe IV 03/04/24 21:35 Not Given ONCE ONE Lactated Ringer's 1,000 mls @ 999 mls/hr 03/04/24 20:49 03/04/24 21:04 Lactated Ringer's 1000 Ml Bag IV 03/04/24 21:49 999 mls/hr .Q1H1M ONE Administration Iopamidol 200 ml 03/04/24 22:47 03/04/24 22:48 Iopamidol-370 (76%);100ml Bottle IV 03/04/24 22:48 200 ml ONCE ONE Administration Lorazepam 2 mg 03/04/24 21:17 03/04/24 21:45 Lorazepam 2mg/Ml Vial IV 03/04/24 21:18 Not Given ONCE ONE Ondansetron HCl 4 mg 03/04/24 21:03 03/04/24 21:04 Ondansetron 4mg/2ml Vial IV 03/04/24 21:04 4 mg ONCE ONE Administration Promethazine HCl 25 mg 03/04/24 21:18 03/04/24 21:36 Promethazine Hcl 25mg/Ml 1ml Vial IV 03/04/24 21:19 25 mg ONCE ONE Administration Sodium Chloride 25 ml 03/04/24 21:18 Sodium Chloride 0.9% 25ml Bag IV 03/04/24 21:19 ONCE ONE Sodium Chloride 100 ml 03/04/24 22:47 03/04/24 22:47 0.9 % Sodium Chloride 50 Ml Vial IV 03/04/24 22:48 100 ml ONCE ONE Administration ORDERS Category Date Time Status CT abdomen pelvis w con Stat Cat Scan 03/04/24 20:[address] angio head Stat Cat Scan 03/04/24 20:[address] angio neck Stat Cat Scan 03/04/24 20:[address] head/brain wo con Stat Cat Scan 03/04/24 20:41 Completed CTA Chest [CT angio chest - dissection] Stat Cat Scan 03/04/24 20:46 Completed Complete Blood Count Auto Diff Stat Lab 03/04/24 20:40 Completed Comprehensive Metabolic Panel Stat Lab 03/04/24 20:40 Completed Troponin I Q3H Lab 03/04/24 23:45 Ordered Troponin I Q3H Lab 03/05/24 02:45 Ordered Troponin I Q3H Lab 03/05/24 02:48 Ordered Troponin I Stat Lab 03/04/24 20:40 Completed UA [Urinalysis and Microscopic] Stat Lab 03/04/24 22:45 Completed VBG [Venous Blood Gas] Stat RT 03/04/24 20:48 Completed Medical Decision Narrative: 68-year-old male recent diagnosis of adenocarcinoma of the esophagus necessitating stenting 2 days prior to this visit, metastases to the brain presenting with vomiting, weakness, dehydration. Patient has been getting worse the last couple of days, today, is felt weak generally, but weaker on his right side. Family states that patient has been unable to tolerate almost any p.o. intake including liquids or solids, acting confused and difficult to help him perform his ADLs, which is not his baseline. Patient denies any symptoms at this time. History was obtained via conversation with patient and family. On arrival, patient hemodynamically stable, alert, oriented x4, appropriate, GCS 15, moving all extremities spontaneously, pupils anisocoric with left pupil 3 mm right pupil 1 mm. Full physical exam performed and significant for anisocoric pupils. Patient neurologically intact otherwise. Symmetric strength, sensation, cerebellar and reflex exam. Differential includes intracranial bleed, CVA, increased ICP, seizure, stent migration, esophageal perforation, bowel obstruction, among others. Patient was given Zofran and fluids for symptomatic management and correction of underlying abnormalities. Tried to lay patient down in CT scanner, he began vomiting. Appears grossly bilious was given 25 mg IV Phenergan and 1 mg Dilaudid for generalized pain. Patient also given 10 mg IV Decadron out of concern for intracranial mass effect and swelling in the setting of known intracranial cancer. Workup independently interpreted and significant for nonactionable hematologic labs other than leukocytosis 16.6. Chemistry largely within normal limits, urinalysis negative. Patient's CT scans concerning for progression of disease with numerous intracranial masses as well as right thalamic and cerebellar infarcts. No intracranial hemorrhage. No obvious mass effect from multiple intracranial masses. CTA of the head and neck without acute occlusion. CT chest with developing pneumonia and esophageal stent appears to be in place. CT abdomen with significant bladder distention, Sheehan catheter placed with 2600 mL out. See radiology read for full review of final results. Independent interpretation of EKG shows sinus rhythm 97 beats a minute no ST or T wave changes concerning for acute anemia. VT, QRS, QT intervals within normal limits. Due to aspiration and vomiting, patient began desaturating 83% while laying flat. Patient's bed was elevated 45 degrees with significant improvement to about 90%, also placed on 4 L nasal cannula with return of respiratory function and saturating mid 90%. Because patient outstripping capabilities at [facility] and needs transfer to comprehensive stroke center as well as comprehensive cancer Center, [facility] was contacted and case was discussed at length, graciously excepted for transfer to [place] emergency department under Dr. Corea. Critical Care Critical Care Time Critical Care Time: Yes (neuro, resp, CV) Attestation: On 03/04/24, the high probability of a clinically significant, sudden or life threatening deterioration of the following system(s) required my full and direct attention, intervention and personal management. The time I documented below is in addition to time spent performing reported procedures but includes the following listed in this critical care notation. Total Time Total Critical Care Time: 120
[2024-03-04 21:14] LABS: Troponin I < 0.01 ng/ml (0.00-0.034)
[2024-03-04 21:19] LABS: Lactate Venous 2.6 mmol/L (0.4-2.0); VBG Base Excess -3.2 mmol/L (-2.4-2.3); VBG Oxygen Saturation 49.1 % (50-70); VBG PCO2 38.7 mmol/L (35-51); VBG PH 7.37 mmol/L (7.31-7.41); VBG PO2 29.6 mmol/L (28-40); VBG Total CO2 23.2 mmol/L (23-27)
--- NOTE | 2024-03-04 21:26 | PC.NURSE ---
patient back to room via stretcher and RN
[2024-03-04] MEDS: DEXAMETHASONE 4MG/ML 1ML VIAL 10 MG IV (21:28)
[2024-03-04] MEDS: HYDROMORPHONE 2MG/ML SYRINGE 1 MG IV (21:35)
[2024-03-04] MEDS: PROMETHAZINE HCL 25MG/ML 1ML VIAL 25 MG IV (21:36)
[2024-03-04 21:53] LABS: Lymphocytes % 12 % (10-50); Monocytes % 1 % (2-9); Neutrophils % 87 % (42-76); Platelet Estimate Normal; Total Cells Counted 100
[2024-03-04 21:54] LABS: RBC Morphology Normal
--- NOTE | 2024-03-04 22:06 | PC.NURSE ---
Pt in CT
[2024-03-04] MEDS: 0.9 % SODIUM CHLORIDE 50 ML VIAL 100 ML IV (22:47)
[2024-03-04] MEDS: SODIUM CHLORIDE 0.9% 10ML SYR (RAD ONLY) 10 ML IV (22:48)
[2024-03-04] MEDS: IOPAMIDOL-370 (76%);100ML BOTTLE 200 ML IV (22:48)
[2024-03-04 22:52] LABS: Microscopic, Urine URINE MICROSCOPIC (MICROSCOPIC)
[2024-03-04 22:53] LABS: Appearance,Urine CLEAR (Clear); Bilirubin,Urine Negative (Negative); Blood, Urine Negative (Negative); Color,Urine YELLOW (Yellow); Glucose,Urine (UA) Negative (Negative); Ketones,Urine Negative (Negative); Leukocyte Esterase,Urine Negative (Negative); Nitrate,Urine Negative (Negative); PH,Urine 6.5 (5.0-8.5); Protein,Urine Negative (Negative)
[2024-03-04 23:23] LABS: Bacteria,Urine Trace /lpf; Mucus,Urine Trace /lpf; Squamous Epithelial Cell,Urine Occasional #/hpf (0-5)
[2024-03-04] MEDS: CEFTRIAXONE SODIUM 2 GM in 0.9 % SODIUM CHLORIDE 100 ML IV (23:35)
--- NOTE | 2024-03-04 23:46 | PC.NURSE ---
[facility] [place] [facility] ETA 8 mins. CR
[2024-03-05 00:16] VITALS: BP 107/50; PULSE 88; RESP 20; TEMP 36.7; O2SAT 98
== END 2024-03-05 00:19 | disposition short-term general hospital (02) ==
PROVIDERS: Emergency Provider Emergency Medicine; PCP Nurse Practitioner Family
DX: J96.01 Acute respiratory failure with hypoxia (principal); I63.9 Cerebral infarction, unspecified; G93.49 Other encephalopathy; J18.9 Pneumonia, unspecified organism; R90.0 Intracranial space-occupying lesion found on diagnostic imaging of central nervous system; G93.9 Disorder of brain, unspecified; K21.9 Gastro-esophageal reflux disease without esophagitis; I11.9 Hypertensive heart disease without heart failure; E78.5 Hyperlipidemia, unspecified; I25.119 Atherosclerotic heart disease of native coronary artery with unspecified angina pectoris; Z95.5 Presence of coronary angioplasty implant and graft; C15.9 Malignant neoplasm of esophagus, unspecified; R11.2 Nausea with vomiting, unspecified
CPT/HCPCS: 51702; 70450; 70496; 70498; 71275; 74177; 80053; 81001; 82803; 84484; 85007; 85025; 93005; 96361; 96365; 96375; 99291; J0696; J2405; Q9967